=== PATIENT | female | born 1950 | race Caucasian/White ===

== ENCOUNTER → 2017-06-02 | Outpatient (CLI) | payer MEDICARE ==
--- NOTE | 2017-06-10 09:01 | MM ---
Reason for exam: screening (asymptomatic). Last mammogram was performed 4 years and 7 months ago. History: Patient is postmenopausal. Family history of breast cancer in 2 paternal aunts and breast cancer in sister at age 54. Benign right mammotome panel of the right breast, June 27, 2005. US Right Core Biopsy of the right breast, June 14, 2005. Benign stereotactic core biopsy of the left breast, May 14, 2004. Benign stereotactic core biopsy of the right breast, May 14, 2004. Core biopsy of the left breast. Core biopsy of the right breast. Took estrogen for 1 year. Physical Findings: A clinical breast exam by your physician is recommended on an annual basis and results should be correlated with mammographic findings. MG 3D Screening Mammo W/Cad Bilateral CC and MLO view(s) were taken. Prior study comparison: March 01, 2016, mammogram, performed at [place]. November 14, 2014, mammogram, performed at [place]. The breast tissue is heterogeneously dense. This may lower the sensitivity of mammography. Previous mammotome biopsy in the right and left breast. There is no discrete abnormality. No significant changes when compared with prior studies. ASSESSMENT: Benign, BI-RAD 2 RECOMMENDATION: Routine screening mammogram of both breasts in 1 year.
== END | disposition home or self-care (01) ==
LOC: RADMAMWWP 07:11
PROVIDERS: ATTEND Family Medicine
DX: Z12.31 Encounter for screening mammogram for malignant neoplasm of breast (principal)
CPT/HCPCS: 77063; G0202

== ENCOUNTER → 2017-06-03 | Outpatient (CLI) | payer MEDICARE ==
--- NOTE | 2017-06-03 17:38 | US ---
EXAMINATION TYPE: US pelvic limited DATE OF EXAM: 06/03/2017 COMPARISON: NONE CLINICAL HISTORY: N94.89 Other specified conditions assoc with genital. Fullness and palpable is note d by patient at right labia. Symptoms x 1 month. Sonographic Impression: Complex oval mass is noted at right labia and size = 2.9 x 2.5 x 1.9cm. IMPRESSION: There is a relatively solid-appearing mass in the area of concern on the right labia. Th e appearance is nonspecific. The mass is oval shaped and I would consider the possibility of a sebace ous cyst.
== END | disposition home or self-care (01) ==
LOC: RADUSWWP 16:18
PROVIDERS: ATTEND Family Medicine
DX: N94.89 Other specified conditions associated with female genital organs and menstrual cycle (principal)
CPT/HCPCS: 76857

== ENCOUNTER 2018-01-03 12:20 | Inpatient (IN) | payer MEDICARE ==
--- NOTE | 2018-01-03 14:03 | ED ---
General Adult HPI - General Chief complaint: Psychiatric Symptoms Stated complaint: Mental Health Time Seen by Provider: 01/03/18 12:42 Source: patient, family, RN notes reviewed Mode of arrival: wheelchair Limitations: no limitations - History of Present Illness Initial comments: Patient 67-year-old female who presents emergency room today with her daughter with need for psychiatric evaluation. Daughter does admit that she's been acting "strange" over this past week. Daughter states is always been some underlying delusions and exaggeration's for a long time. She states that she was lying in bed earlier today and pretending like she was nonresponsive that eventually sat up in the left side of her body. They do admit that the sole of the family physician yesterday. They were unable to obtain urinalysis at that time. Advised that they should come for possible psychiatric evaluation yesterday. States that they decided to wait to see his symptoms improved after she had a seizure in the morning yesterday. They felt that that may be related to some of her symptoms. States still having symptoms today making on statements. Patient does admit that she does feel paranoia. She states she's had this for very long time since been a little control. She does admit that she was critical to sleep. She states she has nightmares. She denies any other complaints. Daughter does admit to a family history of bipolar and schizophrenia. - Related Data Home Medications Medication Instructions Recorded Confirmed Aspirin 81 mg PO DAILY 01/03/18 01/03/18 Atorvastatin [Lipitor] 20 mg PO DAILY 01/03/18 01/03/18 Cholecalciferol (Vitamin D3) 2,000 unit PO DAILY 01/03/18 01/03/18 [Vitamin D3] Levothyroxine Sodium [Synthroid] 125 mcg PO DAILY 01/03/18 01/03/18 Losartan Potassium [Cozaar] 100 mg PO DAILY 01/03/18 01/03/18 Pantoprazole Sodium [Protonix] 40 mg PO DAILY 01/03/18 01/03/18 Sertraline [Zoloft] 100 mg PO BID 01/03/18 01/03/18 Tolterodine ER [Detrol LA] 4 mg PO DAILY 01/03/18 01/03/18 clonazePAM [KlonoPIN] 1 mg PO TID PRN 01/03/18 01/03/18 oxyCODONE-APAP 10-325MG [Percocet 1 tab PO Q4H PRN 01/03/18 01/03/18 10-325 mg] tiZANidine HCL [Zanaflex] 4 mg PO TID PRN 01/03/18 01/03/18 Allergies Allergy/AdvReac Type Severity Reaction Status Date / Time albuterol Allergy Unknown Verified 01/03/18 13:17 alcohol Allergy Unknown Verified 01/03/18 13:17 caffeine Allergy Unknown Verified 01/03/18 13:17 Childhood iodine Allergy Unknown Verified 01/03/18 13:17 lacosamide [From Vimpat] Allergy Unknown Verified 01/03/18 13:17 lamotrigine [From Lamictal] Allergy Unknown Verified 01/03/18 13:17 latex Allergy Unknown Verified 01/03/18 13:17 oxcarbazepine Allergy Unknown Verified 01/03/18 13:17 [From Trileptal] procaine [From Novocain] Allergy Unknown Verified 01/03/18 13:17 Sulfa (Sulfonamide Allergy Unknown Verified 01/03/18 13:17 Antibiotics) sumatriptan [From Imitrex] Allergy Unknown Verified 01/03/18 13:17 Review of Systems ROS Statement: Those systems with pertinent positive or pertinent negative responses have been documented in the HPI. ROS Other: All systems not noted in ROS Statement are negative. Past Medical History Past Medical History: Hyperlipidemia, Hypertension, Seizure Disorder, Sleep Apnea/CPAP/BIPAP History of Any Multi-Drug Resistant Organisms: None Reported Past Surgical History: Cholecystectomy, Hysterectomy, Tonsillectomy Additional Past Surgical History / Comment(s): biopsy bilateral breast Past Psychological History: Depression Smoking Status: Former smoker Past Alcohol Use History: None Reported Past Drug Use History: None Reported General Exam - General Exam Comments Initial Comments: General: The patient is awake and alert, in no distress, and does not appear acutely ill. Eye: Pupils are equal, round and reactive to light, extra-ocular movements are intact. No nystagmus. There is normal conjunctiva bilaterally. No signs of icterus. Ears, nose, mouth and throat: There are moist mucous membranes and no oral lesions. Neck: The neck is supple, there is no tenderness or JVD. Cardiovascular: There is a regular rate and rhythm. No murmur, rub or gallop is appreciated. Respiratory: Lungs are clear to auscultation, respirations are non-labored, breath sounds are equal. No wheezes, stridor, rales, or rhonchi. Musculoskeletal: Normal ROM, no tenderness. Strength 5/5. Sensation intact. Pulses equal bilaterally 2+. Neurological: A&O x 3. CN II-XII intact, There are no obvious motor or sensory deficits. Coordination appears grossly intact. Speech is normal. Skin: Skin is warm and dry and no rashes or lesions are noted. Psychiatric: Cooperative. Limitations: no limitations Course Vital Signs 01/03/18 12:33 Temperature 97.5 F L Pulse Rate 89 Respiratory 17 Rate Blood Pressure 133/81 O2 Sat by Pulse 97 Oximetry Medical Decision Making - Medical Decision Making Patient seen here the emergency room by [facility]. They've recommend the patient to be admitted. Patient is aware the plan. - Lab Data Result diagrams: 01/03/18 14:05 01/03/18 14:05 Lab Results 01/03/18 01/03/18 01/03/18 Range/Units 14:05 14:05 14:05 WBC 10.2 (3.8-10.6) k/uL RBC 4.81 (3.80-5.40) m/uL Hgb 14.7 (11.4-16.0) gm/dL Hct 44.4 (34.0-46.0) % MCV 92.3 (80.0-100.0) fL MCH 30.6 (25.0-35.0) pg MCHC 33.1 (31.0-37.0) g/dL RDW 14.2 (11.5-15.5) % Plt Count 221 (150-450) k/uL Neutrophils % 75 % Lymphocytes % 17 % Monocytes % 6 % Eosinophils % 0 % Basophils % 0 % Neutrophils # 7.6 (1.3-7.7) k/uL Lymphocytes # 1.7 (1.0-4.8) k/uL Monocytes # 0.6 (0-1.0) k/uL Eosinophils # 0.0 (0-0.7) k/uL Basophils # 0.0 (0-0.2) k/uL Sodium 142 (137-145) mmol/L Potassium 4.1 (3.5-5.1) mmol/L Chloride 106 (98-107) mmol/L Carbon Dioxide 21 L (22-30) mmol/L Anion Gap 15 mmol/L BUN 16 (7-17) mg/dL Creatinine 0.60 (0.52-1.04) mg/dL Est GFR (MDRD) Af Amer >60 (>60 ml/min/1.73 sqM) Est GFR (MDRD) Non-Af >60 (>60 ml/min/1.73 sqM) Glucose 100 H (74-99) mg/dL Calcium 9.8 (8.4-10.2) mg/dL Total Bilirubin 1.0 (0.2-1.3) mg/dL AST 29 (14-36) U/L ALT 31 (9-52) U/L Alkaline Phosphatase 77 (38-126) U/L Total Protein 7.2 (6.3-8.2) g/dL Albumin 4.4 (3.5-5.0) g/dL Urine Color Yellow Urine Appearance Clear (Clear) Urine pH 6.0 (5.0-8.0) Ur Specific [place] 1.017 (1.001-1.035) Urine Protein Trace H (Negative) Urine Glucose (UA) Negative (Negative) Urine Ketones 2+ H (Negative) Urine Blood Small H (Negative) Urine Nitrite Negative (Negative) Urine Bilirubin Negative (Negative) Urine Urobilinogen <2.0 (<2.0) mg/dL Ur Leukocyte Esterase Small H (Negative) Urine RBC 5 (0-5) /hpf Urine WBC 3 (0-5) /hpf Ur Squamous Epith Cells 2 (0-4) /hpf Urine Mucus Moderate H (None) /hpf Urine Opiates Screen Not Detected (NotDetected) Ur Oxycodone Screen Not Detected (NotDetected) Urine Methadone Screen Not Detected (NotDetected) Ur Propoxyphene Screen Not Detected (NotDetected) Ur Barbiturates Screen Not Detected (NotDetected) U Tricyclic Antidepress Not Detected (NotDetected) Ur Phencyclidine Scrn Not Detected (NotDetected) Ur Amphetamines Screen Not Detected (NotDetected) U Methamphetamines Scrn Not Detected (NotDetected) U Benzodiazepines Scrn Not Detected (NotDetected) Urine Cocaine Screen Not Detected (NotDetected) U Marijuana (THC) Screen Detected H (NotDetected) Disposition Clinical Impression: Paranoia, Unspecified psychosis Disposition: ADMITTED IP TO THIS [facility] Condition: Stable Time of Disposition: 19:05
[2018-01-03 14:18] LABS: Basophils % (A) 0 %; Eosinophils % (A) 0 %; HCT 44.4 % (34.0-46.0); HGB 14.7 gm/dL (11.4-16.0); Lymphocytes # (A) 1.7 k/uL (1.0-4.8); Lymphocytes % (A) 17 %; MCH 30.6 pg (25.0-35.0); MCHC 33.1 g/dL (31.0-37.0); MCV 92.3 fL (80.0-100.0); Mean Platelet Volume 6.6; Monocytes # (A) 0.6 k/uL (0-1.0); Monocytes % (A) 6 %; Neutrophils # (A) 7.6 k/uL (1.3-7.7); Neutrophils % (A) 75 %; Platelet Count 221 k/uL (150-450); RBC 4.81 m/uL (3.80-5.40); RDW 14.2 % (11.5-15.5); WBC 10.2 k/uL (3.8-10.6)
[2018-01-03 14:26] LABS: Amphetamine Screen,Urine Not Detected (NotDetected); Barbiturate Screen,Urine Not Detected (NotDetected); Benzodiazepines Screen,Urine Not Detected (NotDetected); Cocaine Screen,Urine Not Detected (NotDetected); Methadone Screen, Urine Not Detected (NotDetected); Opiate Screen,Urine Not Detected (NotDetected); Oxycodone Screen, Urine Not Detected (NotDetected); Phencyclidine Screen,Urine Not Detected (NotDetected); Tricyclic Antidepressant,Urine Not Detected (NotDetected)
[2018-01-03 14:28] LABS: Appearance,Urine Clear (Clear); Bilirubin,Urine Negative (Negative); Blood,Urine Small (Negative); Color,Urine Yellow; Glucose,Urine (UA) Negative (Negative); Ketones,Urine 2+ (Negative); Leukocyte Esterase,Urine Small (Negative); Mucus,Urine Moderate /hpf; Nitrite,Urine Negative (Negative); Protein,Urine Trace (Negative); RBC,Urine 5 /hpf (0-5); Specific Gravity,Urine 1.017 (1.001-1.035); Squamous Epithelial Cell,Urine 2 /hpf (0-4); Urn Cannabinoid Scrn Detected (NotDetected); Urobilinogen,Urine <2.0 mg/dL (<2.0); WBC,Urine 3 /hpf (0-5)
[2018-01-03 14:30] LABS: ALT 31 U/L (9-52); AST 29 U/L (14-36); Albumin 4.4 g/dL (3.5-5.0); Alkaline Phosphatase 77 U/L (38-126); Anion Gap 15 mmol/L; Blood Urea Nitrogen 16 mg/dL (7-17); Calcium 9.8 mg/dL (8.4-10.2); Carbon Dioxide 21 mmol/L (22-30); Chloride 106 mmol/L (98-107); Glucose 100 mg/dL (74-99); Potassium 4.1 mmol/L (3.5-5.1); Sodium 142 mmol/L (137-145); Total Protein 7.2 g/dL (6.3-8.2)
--- NOTE | 2018-01-03 17:19 | CT ---
EXAMINATION TYPE: CT brain wo con DATE OF EXAM: 01/03/2018 COMPARISON: 09/02/2012 HISTORY: 67-year-old female with pain, altered mental status. TECHNIQUE: Examination was done in axial plane without intravenous contrast. Coronal and sagittal r econstructions performed. CT DLP: 1059.2 mGycm Automated exposure control for dose reduction was used. FINDINGS: There is no evidence of acute intracranial hemorrhage, acute ischemic changes, mass effect, or extra -axial fluid collection. There is no effacement of cerebral sulci or basal subarachnoid cisterns. T here is no hydrocephalus. There is no midline shift. Vasquez-white matter distinction is preserved. Stable partially calcified extra-axial lesion along the left sphenoid wing measuring 1.2 cm compatibl e with a meningioma. Scattered mild mucosal thickening ethmoid air cells. Mastoid air cells are well pneumatized. Orbits a nd globes are intact. IMPRESSION: No acute intracranial abnormality seen. 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 No associated ma ss effect.
[2018-01-03] MEDS ORDERED: LORazepam 2 MG/ML INJ IV STA (18:08)
[2018-01-03] MEDS ORDERED: LORazepam 1 MG TAB PO STA (18:23)
[2018-01-03 19:13] VITALS: RESP 16; TEMP 98.1
[2018-01-03] MEDS ORDERED: MAG HYDROX/AL HYDROX/SIMETH 30 ML CUP PO PRN (19:25)
[2018-01-03] MEDS ORDERED: MAGNESIUM HYDROXIDE 2,400 MG/10 ML CUP PO PRN (19:25)
[2018-01-03] MEDS ORDERED: ACETAMINOPHEN TAB 325 MG TAB PO PRN (19:25)
[2018-01-03] MEDS ORDERED: LORazepam 0.5 MG TAB PO PRN (19:27)
[2018-01-03] MEDS ORDERED: METOPROLOL TARTRATE 25 MG TAB PO STA (21:47)
[2018-01-03 22:21] VITALS: BP 145/93; PULSE 111
[2018-01-04] MEDS ORDERED: LEVOTHYROXINE 125 MCG TAB PO SCH (06:30)
[2018-01-04] MEDS ORDERED: PANTOPRAZOLE 40 MG TABLET PO SCH (07:30)
[2018-01-04] MEDS ORDERED: LOSARTAN 50 MG TAB PO SCH (09:00)
[2018-01-04] MEDS ORDERED: ATORVASTATIN 20 MG TAB PO SCH (09:00)
[2018-01-04] MEDS ORDERED: CHOLECALCIFEROL 1,000 UNIT TAB PO SCH (09:00)
[2018-01-04] MEDS ORDERED: OXYBUTYNIN XL 5 MG TAB.ER.24 PO SCH (09:00)
[2018-01-04] MEDS ORDERED: ASPIRIN 81 MG PO SCH (09:00)
[2018-01-04] MEDS ORDERED: METOPROLOL TARTRATE 25 MG TAB PO SCH (09:00)
== END 2018-01-03 23:02 | disposition short-term general hospital (02) | DRG 897 ==
LOC: EC 12:20 → 3MHU 19:03 → 6SEL 22:06 → 3MHU 22:06 → UNDODISIN 23:02
PROVIDERS: ADMIT Psychiatry & Neurology Psychiatry; ATTEND Psychiatry & Neurology Psychiatry
DX: F19.950 Other psychoactive substance use, unspecified with psychoactive substance-induced psychotic disorder with delusions (principal); F22 Delusional disorders; E78.5 Hyperlipidemia, unspecified; G40.909 Epilepsy, unspecified, not intractable, without status epilepticus; G47.30 Sleep apnea, unspecified; I10 Essential (primary) hypertension; Z79.82 Long term (current) use of aspirin; Z79.899 Other long term (current) drug therapy; F32.9 Major depressive disorder, single episode, unspecified; Z87.891 Personal history of nicotine dependence; Z90.710 Acquired absence of both cervix and uterus; Z90.49 Acquired absence of other specified parts of digestive tract; Z81.8 Family history of other mental and behavioral disorders; Z91.041 Radiographic dye allergy status; Z91.040 Latex allergy status; Z88.2 Allergy status to sulfonamides; Z88.8 Allergy status to other drugs, medicaments and biological substances; Z91.018 Allergy to other foods
CPT/HCPCS: 36415; 70450; 80053; 80306; 81001; 82075; 85025; 93005; 99285

== ENCOUNTER 2018-01-03 13:29 | Inpatient (IN) | payer MEDICARE ==
[2018-01-04] MEDS ORDERED: LORazepam 2 MG/ML INJ IV PRN (05:56)
[2018-01-04] MEDS ORDERED: HALOPERIDOL LACTATE 5 MG/ML 1 ML VIAL IM PRN ×2 (07:13→14:21)
[2018-01-04 09:00] VITALS: BMI 37.2
[2018-01-04] MEDS ORDERED: METOPROLOL TARTRATE 25 MG TAB PO SCH (09:00)
[2018-01-04 11:30] LABS: Basophils % (A) 0 %; Eosinophils % (A) 1 %; HCT 42.7 % (34.0-46.0); HGB 14.4 gm/dL (11.4-16.0); Lymphocytes # (A) 1.7 k/uL (1.0-4.8); Lymphocytes % (A) 24 %; MCH 30.5 pg (25.0-35.0); MCHC 33.6 g/dL (31.0-37.0); MCV 90.7 fL (80.0-100.0); Mean Platelet Volume 6.8; Monocytes # (A) 0.4 k/uL (0-1.0); Monocytes % (A) 6 %; Neutrophils # (A) 4.6 k/uL (1.3-7.7); Neutrophils % (A) 66 %; Platelet Count 197 k/uL (150-450); RBC 4.71 m/uL (3.80-5.40); RDW 14.3 % (11.5-15.5)
[2018-01-04 11:39] LABS: Anion Gap 11 mmol/L; Blood Urea Nitrogen 15 mg/dL (7-17); Calcium 9.4 mg/dL (8.4-10.2); Carbon Dioxide 27 mmol/L (22-30); Chloride 107 mmol/L (98-107); Glucose 111 mg/dL (74-99); Potassium 3.6 mmol/L (3.5-5.1); Sodium 145 mmol/L (137-145)
[2018-01-04] MEDS ORDERED: clonazePAM 1 MG TAB PO PRN (12:00)
[2018-01-04] MEDS ORDERED: tiZANidine 4 MG TAB PO PRN (12:00)
[2018-01-04] MEDS ORDERED: risperiDONE ODT 1 MG TAB PO STA (14:19)
--- NOTE | 2018-01-04 14:55 | P.CN ---
Psychiatric Consult - . Consult date: 01/04/18 Consult:: 01/04/18 14:38 Identification: Patient is a 67-year-old female was brought to the emergency room yesterday by her daughter for acting strange for one week Reason for Consult: AMS History of Present Illness: Patient was brought to the emergency room by her daughter after visiting their primary care physician's office on Friday for strange behavior for one week. Patient's daughter commented that the patient has always been delusional and exaggerates. Patient is also reported to have had a seizure Friday morning. Patient was admitted to the psychiatric unit and was found to be in atrial fibrillation and transferred to a medical floor. Patient was seen in her room and no family members were present, the chart was reviewed. Patient was difficult to interview and difficult to obtain an accurate history from. Patient states she was at the doctor's office ranting and raving and tired of being improperly diagnosed. 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 She then went on to talk about the 10 questions to ask herself if you have mastocytosis. Patient then went on to discuss that everyone is talking about the outburst she had. She wanted me to tell no one that she had had the outburst. Patient states that she's always been paranoid her whole life but was unable to be specific about what she meant. Patient states that she does put her purse in the microwave in her jewelry in the oven. Patient was unable to tell me how long she has been taking Klonopin 1 mg 3 times a day or actually how she is taking it and when she stopped taking it. I one point the patient told me that she's been taking more than 3 a day at another point she told me she had been taking 1-2 a day. Patient was unable to tell me why she was on Zoloft and states that she's had depression since her mother 20 years ago she then states that she's been paranoid all her life, people of been out to get her and didn't like her because she's been rude obnoxious and loud. Patient also stated that she has impulsively spent money in the past. Patient went on to go over her medical history regarding her kidney stones and went on to discuss how she doesn't like to be cast and that that was why she became upset earlier this morning. Patient went on to also talk about having fallen on a otilia and hurt her back as well as having a head injury. Patient was unable to tell me if her seizure disorder began as a child or not at one point saying yes at another point stating that she was taking Klonopin for her seizure disorder and then later stated it was for panic attacks. Patient stated she's been paranoid all her life, she then admitted that she's had times where she's had a lot of energy and has talked a lot as well as having periods of depression where she doesn't do much of anything. She was unable to elaborate further. Past Psychiatric History: Patient reports that she has never had any inpatient psychiatric admissions in the past and it is unclear whether she has been seen by psychiatry in the past Past Medical/Surgical History: Patient has a history of a seizure disorder, back injury renal calculi, hyperlipidemia, hypertension, sleep apnea using a CPAP machine she is status post hysterectomy and cholecystectomy Family History: Unable to obtain Social History: Patient has 1 daughter and she is to her current on 2 occasions. 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 Substance Use History: Patient denies any alcohol use and states that she smoked marijuana for only the last 2 weeks and denies any other drug use Legal History: Denied Mental status: Appearance/Attitude: Patient is dressed in hospital gown lying in her hospital bed and makes intermittent eye contact and is cooperative Behavior: Patient does not display any psychomotor retardation and was easily irritated during the interview Speech/Language: Patient's speech is pressured, normal volume and rhythm and she is coherent Thought Process: Patient is tangential, preoccupied with different medical problems, no loose associations Thought Content: Patient denied auditory or visual hallucinations and states that she is paranoid when asked to clarify this she states that she won't go to bed because she is afraid someone will put a trach in her, she said that she does keep her purse and the microwave and her jewelry in the oven. She states the people of been out to get her and not like her all her life because she's been rude, obnoxious, mild. Patient went on to tell me that she is not sleeping well and feeling tired. Suicidal/Homicidal Ideation: Patient denied any current suicidal or homicidal ideation Sensorium/Cognition: Patient was alert and oriented to person, location, month and year and further cognitive testing was not performed Mood/Affect: Patient's mood labile, was tearful, at times irritable and at other times she was smiling and her affect was appropriate to her mood Isight/Judgment: Patient's insight and judgment are limited Assessment: patient was brought to the emergency room with a history of one week of acting strange, and having had a seizure on Friday in the morning as well the patient has been on Klonopin 1 mg 3 times a day and it is unclear how long ago she discontinued taking it as her UDS was not positive for benzodiazepines and was positive for marijuana.. Patient also has been on Zoloft 100 mg twice a day for an unknown period of time for depression. Patient also reports that she has panic attacks. Patient was a difficult historian. Patient reports that she is always been paranoid, her paranoia has increased recently and is unclear how well she was functioning at home for the last week. Patient has no prior history of psychiatric treatment, although she is able to endorse symptoms of paranoia, and perhaps a bipolar disorder. Patient became quite agitated earlier on the floor and was given Haldol 5 mg IM and Ativan 1 mg IM with good results patient was able to be taken out of restraints. It is difficult to say whether the patient has had a paranoid/ delusional disorder and decompensated secondary to benzodiazepine withdrawal or if the patient has an underlying bipolar disorder. Diagnosis: psychotic disorder NOS, rule out benzodiazepine-induced psychosis secondary to withdrawal, rule out bipolar disorder, manic episode with psychotic features, rule out delusional disorder Plan: I will discontinue the patient's Zoloft as she is psychotic at this time, we'll decrease her Haldol to 2 mg IM every 6 hours when necessary for agitation , we'll begin the patient on Risperdal and give 1 mg M tab now and then Risperdal M-Tab 1 mg twice a day. Patient is continued on Klonopin 1 mg 3 times a day when necessary. Will continue to follow the patient while she is on the medical floor and adjust her medications accordingly as well as assess whether the patient needs to be transferred back to the psychiatric unit once she is medically stable.
[2018-01-04] MEDS: METOPROLOL TARTRATE 25 MG TAB PO SCH ×2 (16:18→20:37)
[2018-01-04] MEDS: RIVAROXABAN 10 MG TAB PO SCH (16:21)
--- NOTE | 2018-01-04 16:21 | P.HPIM ---
History of Present Illness H&P Date: 01/04/18 Chief Complaint: Acute psychosis Patient is a 67-year-old female with a known history of Hyperlipidemia, Hypertension, Osteoarthritis (OA), Pneumonia, Seizure Disorder, Sleep Apnea/CPAP /BIPAP initially presents to ER with her daughter for psychiatric evaluation. Patient has been acting strange over the past 1 week. Patient was having delusions and hallucinations. Patient does have a long-standing history of psychiatric illness. Patient was having a rheumatoid symptoms and night sweats. Patient was initially admitted to psychiatric unit for evaluation. Patient was found to have atrial fibrillation with rapid ventricular rate up to 110 while in the psychiatric unit. Patient was transferred to inpatient telemetry unit. Patient was combative and hallucinating and had to restrain this morning. She was given a dose of Haldol 5 mg IM. Currently patient did improve clinically and restraints have it removed. Cardiology has been consulted for new onset atrial fibrillation. Currently patient denied any complaints of chest pain or shortness of breath. No nausea vomiting or abdominal pain. Otherwise patient is a poor historian and complete review of systems could not be obtained from the patient Past Medical History Past Medical History: Hyperlipidemia, Hypertension, Osteoarthritis (OA), Pneumonia, Seizure Disorder, Sleep Apnea/CPAP/BIPAP History of Any Multi-Drug Resistant Organisms: None Reported Past Surgical History: Cholecystectomy, Hysterectomy, Tonsillectomy Additional Past Surgical History / Comment(s): biopsy bilateral breast, lipoma removed from shoulder. Past Psychological History: Depression Additional Psychological History / Comment(s): Paranoia Smoking Status: Former smoker Past Alcohol Use History: None Reported Past Drug Use History: None Reported - Past Family History Father Family Medical History: Unable to Obtain Mother Family Medical History: Unable to Obtain Medications and Allergies Home Medications Medication Instructions Recorded Confirmed Type Aspirin 81 mg PO DAILY 01/03/18 01/04/18 History Atorvastatin [Lipitor] 20 mg PO DAILY 01/03/18 01/04/18 History Cholecalciferol (Vitamin D3) 2,000 unit PO DAILY 01/03/18 01/04/18 History [Vitamin D3] Levothyroxine Sodium [Synthroid] 125 mcg PO DAILY 01/03/18 01/04/18 History Losartan Potassium [Cozaar] 100 mg PO DAILY 01/03/18 01/04/18 History Pantoprazole Sodium [Protonix] 40 mg PO DAILY 01/03/18 01/04/18 History Sertraline [Zoloft] 100 mg PO BID 01/03/18 01/04/18 History Tolterodine ER [Detrol LA] 4 mg PO DAILY 01/03/18 01/04/18 History clonazePAM [KlonoPIN] 1 mg PO TID PRN 01/03/18 01/04/18 History oxyCODONE-APAP 10-325MG [Percocet 1 tab PO Q4H PRN 01/03/18 01/04/18 History 10-325 mg] tiZANidine HCL [Zanaflex] 4 mg PO TID PRN 01/03/18 01/04/18 History Allergies Allergy/AdvReac Type Severity Reaction Status Date / Time albuterol Allergy Unknown Verified 01/04/18 07:44 alcohol Allergy Unknown Verified 01/04/18 07:44 caffeine Allergy Unknown Verified 01/04/18 07:44 Childhood iodine Allergy Unknown Verified 01/04/18 07:44 lacosamide [From Vimpat] Allergy Unknown Verified 01/04/18 07:44 lamotrigine [From Lamictal] Allergy Unknown Verified 01/04/18 07:44 latex Allergy Unknown Verified 01/04/18 07:44 oxcarbazepine Allergy Unknown Verified 01/04/18 07:44 [From Trileptal] procaine [From Novocain] Allergy Unknown Verified 01/04/18 07:44 Sulfa (Sulfonamide Allergy Unknown Verified 01/04/18 07:44 Antibiotics) sumatriptan [From Imitrex] Allergy Unknown Verified 01/04/18 07:44 Physical Exam Vitals: Vital Signs Temp Pulse Resp BP Pulse Ox 01/04/18 11:29 78 01/04/18 11:28 97.1 F L 78 16 137/64 97 01/04/18 08:00 97.1 F L 53 L 14 159/77 93 L 01/04/18 04:00 94 18 01/04/18 03:58 97.1 F L 94 18 132/79 94 L 01/04/18 00:41 104 H 18 01/04/18 00:00 98.5 F 104 H 18 150/90 95 Intake and Output 01/03/18 01/04/18 01/04/18 22:59 06:59 14:59 Intake Total 150 Balance 150 Intake: Oral 150 Other: Voiding Method Toilet # Voids 3 Weight 111 kg PHYSICAL EXAMINATION: Patient is lying in the bed comfortably, no acute distress, awake alert and oriented.. HEENT: Normocephalic. Neck is supple. Pupils reactive. Nostrils clear. Oral cavity is moist. Ears reveal no drainage. Neck reveals no JVD, carotid bruits, or thyromegaly. CHEST EXAMINATION: Trachea is central. Symmetrical expansion. Lung valiente clear to auscultation and percussion. CARDIAC: Normal S1, S2 with no gallops. No murmurs ABDOMEN: Soft. Bowel sounds normal. No organomegaly. No abdominal bruits. Extremities: reveal no edema. No clubbing or cyanosis Neurologically awake, alert, oriented x3 with well-coordinated movements. No focal deficits noted Skin: No rash or skin lesions. Psychiatric: Patient does have acute psychosis and paranoid Musculoskeletal: No joint swelling or deformity. Normal range of motion. Results CBC & Chem 7: 01/04/18 11:16 01/04/18 11:16 Labs: Abnormal Lab Results - Last 24 Hours (Table) 01/04/18 Range/Units 11:16 Glucose 111 H (74-99) mg/dL Thrombosis Risk Factor Assmnt - Choose All That Apply Any of the Below Risk Factors Present?: No Each Risk Factor Represents 2 Points: Age 61-74 years Each Risk Factor Represents 3 Points: History of DVT/PE Thrombosis Risk Factor Assessment Total Risk Factor Score: 5 Thrombosis Risk Factor Assessment Level: High Risk Assessment and Plan Assessment: Acute psychosis with paranoid symptoms New onset atrial fibrillation. Rate controlled Hypertension Hyperlipidemia Osteoarthritis History of seizure disorder Obstructive sleep apnea on CPAP morbid obesity with BMI 37.2 Plan: Patient will be continued on telemetry monitoring. Serial EKG. Will check troponin level. Continue with aspirin. Cardiology was consulted for further evaluation of atrial fibrillation. Psychiatric has seen the patient. Zoloft has been discontinued and patient was started on Haldol and Klonopin. Continue with current management and further recommendations based on the clinical course. Time with Patient: Greater than 30
[2018-01-04] MEDS: risperiDONE ODT 1 MG TAB PO SCH (20:38)
[2018-01-04] MEDS ORDERED: SERTRALINE 100 MG TAB PO SCH (21:00)
[2018-01-04 21:37] VITALS: RESP 18
--- NOTE | 2018-01-04 23:31 | CONS ---
CONSULTATION This is a 67-year-old lady who has been transferred from the mental health unit because of anxiety and was found to have a rapid heart rate in atrial fibrillation, but she has since then converted to sinus rhythm. She is resting comfortably without symptoms. This lady was brought to the emergency room by her daughter after visiting the primary care physician for strange behavior and the daughter commented that patient has been delusional. There was a question of seizures. However, after she has been hospitalized while on the telemetry unit apparently, she developed some anxiety and went on to have a rapid heart rate and was found to be in atrial fibrillation and transferred here. She has converted to sinus rhythm. She is resting comfortably without symptoms. However, her EKG after conversion revealed some precordial nonspecific T-wave changes without angina. PAST MEDICAL HISTORY: 1. Hypertension. 2. Hyperlipidemia. 3. Anxiety disorder. 4. History of obstructive sleep apnea syndrome. 5. She is status post cholecystectomy, hysterectomy, and tonsillectomy. 6. Also has underlying depression and paranoia and has been in the mental health unit. MEDICATIONS: At home include: Aspirin 81 mg daily, Lipitor 20 mg daily, Synthroid 125 mcg daily, Cozaar, Protonix, she also takes Zoloft. ALLERGIES: SHE IS ALLERGIC TO NUMBER MEDICATION INCLUDING ALLERGIES, SULFA, IMITREX, LAMICTAL AND ALBUTEROL. EXAMINATION: Blood pressure is 137/70, pulse rate 78, regular sinus. HEENT unremarkable. Fundus was not examined by me. NECK: Supple. No JVD. I do not hear a carotid bruit. There is no thyromegaly. Heart exam reveals S1, S2 heard normally. Heart sounds are distantly. No significant murmurs lungs are clear. ABDOMEN: Soft, nontender. Lower extremities reveal diminished pulses. Central nervous system is normal. EKG revealed a sinus mechanism with a precordial T-wave inversion. IMPRESSION: 1. Paroxysmal atrial fibrillation, now back in sinus rhythm. 2. Hypertension. 3. History of anxiety disorder and paranoia. 4. History of obstructive sleep apnea syndrome. RECOMMENDATION: I am recommending that we check a TSH level, perform echo and Lexiscan stress test in the morning. Start her on Xarelto 20 mg daily, Lopressor will be 25 mg t.i.d. I discussed my thoughts in detail with the patient. Thank you very much for the consult. MMODL / IJN: [id number] /
[2018-01-05] MEDS ORDERED: REGADENOSON 0.4 MG/5 ML SYRINGE IV ONE (06:00)
[2018-01-05] MEDS ORDERED: AMINOPHYLLINE 500 MG/20 ML VIAL IV PRN (06:00)
[2018-01-05] MEDS ORDERED: LEVOTHYROXINE 125 MCG TAB PO SCH (06:30)
[2018-01-05 06:49] LABS: Glucose,Whole Blood 106 mg/dL (75-99)
[2018-01-05] MEDS ORDERED: PANTOPRAZOLE 40 MG TABLET PO SCH (07:30)
[2018-01-05] MEDS ORDERED: ASPIRIN 81 MG PO SCH (09:00)
[2018-01-05] MEDS ORDERED: ATORVASTATIN 20 MG TAB PO SCH (09:00)
[2018-01-05] MEDS ORDERED: CHOLECALCIFEROL 1,000 UNIT TAB PO SCH (09:00)
[2018-01-05] MEDS ORDERED: TOLTERODINE 4 MG PO SCH (09:00)
[2018-01-05] MEDS ORDERED: LOSARTAN 50 MG TAB PO SCH (09:00)
--- NOTE | 2018-01-05 10:30 | NM ---
EXAMINATION TYPE: NM stress lexiscan cardiolite DATE OF EXAM: 01/05/2018 COMPARISON: NONE HISTORY: 67-year-old female EKG changes, pain TECHNIQUE: After the intravenous administration of 10.3 mCi Tc 99m Sestamibi - Cardiolite resting SP ECT images acquired 40 minutes post injection. The patient received 0.4mg Lexiscan, 27 mCi Tc 99m Sestamibi - Stress images obtained 30 minutes post injection FINDINGS: Review of stress and rest SPECT images demonstrates no distinct perfusion abnormality. Gated analysi s shows normal wall motion with an estimated left ventricular ejection fraction of 64 %. TID calcula rick at 0.87, within normal limits. IMPRESSION: No scintigraphic evidence for reversible ischemia.
--- NOTE | 2018-01-05 10:40 | ECHOF ---
Referral Reason:EKG changes MEASUREMENTS -------- HEIGHT: 172.7 cm WEIGHT: 110.7 kg BP: 135/70 RVIDd: 3.3 cm (< 3.3) IVSd: 1.1 cm (0.6 - 1.1) LVIDd: 5.7 cm (3.9 - 5.3) LVPWd: 1.1 cm (0.6 - 1.1) IVSs: 2.0 cm LVIDs: 3.5 cm LVPWs: 1.8 cm LA Diam: 4.0 cm (2.7 - 3.8) LAESV Index (A-L): 31.51 ml/m Ao Diam: 3.4 cm (2.0 - 3.7) AV Cusp: 2.1 cm (1.5 - 2.6) MV EXCURSION: 11.800 mm (> 18.000) MV EF SLOPE: 59 mm/s (70 - 150) EPSS: 0.4 cm MV E Ketan: 0.76 m/s MV DecT: 226 ms MV A Ketan: 0.85 m/s MV E/A Ratio: 0.89 FINDINGS -------- Sinus rhythm. This was a technically adequate study. The left ventricle is mildly dilated. There is borderline concentric left ventricular hypertrophy. Overall left ventricular systolic function is normal with, an EF between 55 - 60 %. The right ventricle is mildly enlarged. LA is midly dilated 29-33ml/m2. The right atrium is normal in size. There is mild aortic valve sclerosis. There is trace mitral regurgitation. The tricuspid valve appears structurally normal. The pulmonic valve was not well visualized. The aortic root size is normal. Normal inferior vena cava with normal inspiratory collapse consistent with estimated right atrial pre ssure of 5 mmHg. There is no pericardial effusion. CONCLUSIONS -------- 1. Sinus rhythm. 2. This was a technically adequate study. 3. The left ventricle is mildly dilated. 4. There is borderline concentric left ventricular hypertrophy. 5. Overall left ventricular systolic function is normal with, an EF between 55 - 60 %. 6. The right ventricle is mildly enlarged. 7. LA is midly dilated 29-33ml/m2. 8. The right atrium is normal in size. 9. There is mild aortic valve sclerosis. 10. There is trace mitral regurgitation. 11. The tricuspid valve appears structurally normal. 12. The pulmonic valve was not well visualized. 13. The aortic root size is normal. 14. Normal inferior vena cava with normal inspiratory collapse consistent with estimated right atrial pressure of 5 mmHg. 15. There is no pericardial effusion. COMMERCIAL ADMINISTRATOR: Judy Palma RDCS
[2018-01-05 11:21] VITALS: TEMP 97.5
[2018-01-05] MEDS: METOPROLOL TARTRATE 25 MG TAB PO SCH ×2 (12:33→17:15)
[2018-01-05] MEDS: risperiDONE ODT 1 MG TAB PO SCH ×2 (12:34→17:15)
--- NOTE | 2018-01-05 13:14 | EST ---
EXERCISE STRESS AGE: 67 SEX: F HT: 5'8" WT: 242 PROTOCOL: Lexiscan Cardiolite Stress Test HEART RATE REST: 72 BLOOD PRESSURE REST: 111/87 MAXIMUM HEART RATE ACHIEVED: 86 MAXIMUM BLOOD PRESSURE: 108/67 85% MPHR: 131 100% MPHR: 154 INDICATIONS: Shortness of breath Lexiscan Cardiolite study was performed. Peak heart rate of 86, was achieved. Maximum blood pressure 108/67 mmHg was noted. Resting EKG shows normal sinus rhythm with normal OK interval and QRS duration and normal ST-T waves. No ST-segment depression suggestive of ischemia was noted. The results of the nuclear study will follow. MMAVANIL / IJN: [id number] /
--- NOTE | 2018-01-05 15:33 | P.PN ---
Progress Note - Text Progress Note Date: 01/05/18 Interval History: Patient is a 67-year-old female who is being seen in follow- up to a consultation, patient reports that she is doing much better today and was able to give some more information regarding what had been occurring. Patient states that she would take Klonopin some days nothing some days up to 6 and she has been doing this for a number of years that she has been on Klonopin since 2005. Patient states that she would take these for episodes of feeling sweaty and anger anxious. She reports that in [place] when she was living there she had seizures on several occasions and was in the hospital on 3-4 occasions when she had stopped taking her Klonopin. She states that while she was in [place] they were attending a confucianism that did pray over her and tell her to stop the Klonopin. Patient reports that she has been paranoid in the past and does admit to putting her purse and valuables either in the oven or in the microwave. She states that she was afraid to fall asleep but does not have these thoughts now. Patient does not endorse any symptoms of manic behavior in the past but doesn't endorse symptoms of depression in the past and "paranoid" episodes of which she cannot be very clear about. Patient states that she sleeps during the day and stays up most nights playing video games or watching television. Patient reports that she is no longer feeling as confused as she was when she came into the emergency room. Mental Status: Appearance/Attitude: Patient was dressed in street clothes, was sitting at the edge of her bed made good eye contact and was cooperative. Behavior: Patient did not display any psychomotor agitation or retardation. Speech/Language: Patient's speech was spontaneous, of normal volume and rhythm and remained at times slightly pressured Thought Process: Patient was goal-directed, she was a better historian today but is still not able to give a clear history about her prior symptoms or what was occurring in the week prior to her admission. Thought Content: Patient denied auditory or visual hallucinations and still slightly suspicious but does not verbalize any paranoid delusions. Patient states that she is no longer feeling that if she falls asleep she will be trached, denies that she feels people are out to hurt her and states that she felt when she was placed in restraints that she was being videotaped. Suicidal/Homicidal Ideation: Patient denies any current suicidal or homicidal ideation Sensorium/Cognition: Patient is alert and oriented to person, place, and time and her recent and remote memory is grossly intact Mood/Affect: Patient's mood is slightly anxious and her affect is appropriate Insight/Judgment: Patient's insight and judgment are limited. Assessment: Patient is much more organized in [place] each and thoughts today, states that she feels she is thinking clearer states that she no longer feels that if she falls asleep she will be trached, but was questioning whether she had been videotaped the other day in the hospital. Patient states that she's had paranoid episodes in the past but is unable to clearly define or describe what those were. Patient states that she was using Klonopin by taking none some days 6 other days taking 3 at bedtime and has been doing this on and off for a number of years. Patient states that she has been on Klonopin since 2005 and she reported that she had several episodes of seizures in [place] in the past. Patient was also on Zoloft 200 mg since 1998 for depression and episodes where she feels "sweaty" and states that this is not been beneficial either. Plan: Patient was agreeable to transfer back to the psychiatric unit and signing in on a voluntary basis, I discussed with her continuing the Risperdal 1 mg twice a day for now. Patient has not taken any Klonopin while she has been in the hospital and was not taking it for several days prior to her admission so will not continue this medication. Patient felt the Zoloft was not beneficial and so will not restart that either. Patient will be evaluated for appropriate medications on the psychiatric unit and I discussed this with the patient and she was agreeable to this plan.
--- NOTE | 2018-01-05 15:57 | P.DS ---
Providers Date of admission: 01/03/18 23:03 Attending physician: Andrea Willoughby Consults: 01/04/18 05:58 Consult Physician Routine Consulting Provider: Daryn Shin Consult Reason/Comments: NOS A-Fib RVR Do you want consulting provider notified?: Yes, Notify in am 01/04/18 06:10 Consult Physician Routine Consulting Provider: Nallely Terry Consult Reason/Comments: AMS Do you want consulting provider notified?: Yes, Notify in am Primary care physician: Stated None Hospital Course: Hyperlipidemia, Hypertension, Osteoarthritis (OA), Pneumonia, Seizure Disorder, Sleep Apnea/CPAP/BIPAP initially presents to ER with her daughter for psychiatric evaluation. Patient has been acting strange over the past 1 week. Patient was having delusions and hallucinations. Patient does have a long- standing history of psychiatric illness. Patient was having a rheumatoid symptoms and night sweats. Patient was initially admitted to psychiatric unit for evaluation. Patient was found to have atrial fibrillation with rapid ventricular rate up to 110 while in the psychiatric unit. Patient was transferred to inpatient telemetry unit. Patient was combative and hallucinating and had to restrain this morning. She was given a dose of Haldol 5 mg IM. Currently patient did improve clinically and restraints have it removed. Cardiology has been consulted for new onset atrial fibrillation. Currently patient denied any complaints of chest pain or shortness of breath. No nausea vomiting or abdominal pain. 01/05/2018 Patient heart rate is well controlled patient was started on Lopressor and anticoagulation patient medically is doing well and patient will be discharged back to psychiatric floor PHYSICAL EXAMINATION: Patient is lying in the bed comfortably, no acute distress, awake alert and oriented.. HEENT: Normocephalic. Neck is supple. Pupils reactive. Nostrils clear. Oral cavity is moist. Ears reveal no drainage. Neck reveals no JVD, carotid bruits, or thyromegaly. CHEST EXAMINATION: Trachea is central. Symmetrical expansion. Lung valiente clear to auscultation and percussion. CARDIAC: Normal S1, S2 with no gallops. No murmurs ABDOMEN: Soft. Bowel sounds normal. No organomegaly. No abdominal bruits. Extremities: reveal no edema. No clubbing or cyanosis Neurologically awake, alert, oriented x3 with well-coordinated movements. No focal deficits noted Skin: No rash or skin lesions. Psychiatric: Patient does have acute psychosis and paranoid Musculoskeletal: No joint swelling or deformity. Normal range of motion. Assessment and Plan Assessment: New onset atrial fibrillation. Rate controlled Acute psychosis with paranoid symptoms Hypertension Hyperlipidemia Osteoarthritis History of seizure disorder Obstructive sleep apnea on CPAP morbid obesity with BMI 37.2 Plan - Discharge Summary Discharge Rx Participant: No New Discharge Prescriptions: New Metoprolol Tartrate [Lopressor] 25 mg PO TID #90 tab Rivaroxaban [Xarelto] 20 mg PO W/SUPPER #30 tab Butalb/APAP/Caff 50-325-40Mg [Fioricet 50-325-40] 1 tab PO Q4H PRN #30 tablet PRN Reason: Headache Continue tiZANidine HCL [Zanaflex] 4 mg PO TID PRN PRN Reason: Pain Tolterodine ER [Detrol LA] 4 mg PO DAILY Sertraline [Zoloft] 100 mg PO BID Levothyroxine Sodium [Synthroid] 125 mcg PO DAILY oxyCODONE-APAP 10-325MG [Percocet 10-325 mg] 1 tab PO Q4H PRN PRN Reason: Pain clonazePAM [KlonoPIN] 1 mg PO TID PRN PRN Reason: Anxiety Pantoprazole Sodium [Protonix] 40 mg PO DAILY Losartan Potassium [Cozaar] 100 mg PO DAILY Cholecalciferol (Vitamin D3) [Vitamin D3] 2,000 unit PO DAILY Atorvastatin [Lipitor] 20 mg PO DAILY Discontinued Aspirin 81 mg PO DAILY Discharge Medication List Atorvastatin [Lipitor] 20 mg PO DAILY 01/03/18 [History] Cholecalciferol (Vitamin D3) [Vitamin D3] 2,000 unit PO DAILY 01/03/18 [History] Levothyroxine Sodium [Synthroid] 125 mcg PO DAILY 01/03/18 [History] Losartan Potassium [Cozaar] 100 mg PO DAILY 01/03/18 [History] Pantoprazole Sodium [Protonix] 40 mg PO DAILY 01/03/18 [History] Sertraline [Zoloft] 100 mg PO BID 01/03/18 [History] Tolterodine ER [Detrol LA] 4 mg PO DAILY 01/03/18 [History] clonazePAM [KlonoPIN] 1 mg PO TID PRN 01/03/18 [History] oxyCODONE-APAP 10-325MG [Percocet 10-325 mg] 1 tab PO Q4H PRN 01/03/18 [History] tiZANidine HCL [Zanaflex] 4 mg PO TID PRN 01/03/18 [History] Butalb/APAP/Caff 50-325-40Mg [Fioricet 50-325-40] 1 tab PO Q4H PRN #30 tablet [Rx] Metoprolol Tartrate [Lopressor] 25 mg PO TID #90 tab 01/05/18 [Rx] Rivaroxaban [Xarelto] 20 mg PO W/SUPPER #30 tab 01/05/18 [Rx] Follow up Appointment(s)/Referral(s): Kahlil Sauer MD [STAFF PHYSICIAN] - 1 Week Alonzo Anderson DO [STAFF PHYSICIAN] - 3 Days Discharge Disposition: TRANSFER TO PSYCH HOSP/UNIT
[2018-01-05] MEDS: RIVAROXABAN 10 MG TAB PO SCH (17:15)
[2018-01-05 17:24] VITALS: BP 119/57; PULSE 78
== END 2018-01-05 18:18 | DRG 309 ==
LOC: UNDOADMIN 23:03 → 6SEL 23:03 → EEVIPCON 23:03
PROVIDERS: ADMIT Internal Medicine; ATTEND Internal Medicine
DX: I48.0 Paroxysmal atrial fibrillation (principal); F23 Brief psychotic disorder; E66.01 Morbid (severe) obesity due to excess calories; F32.9 Major depressive disorder, single episode, unspecified; F41.9 Anxiety disorder, unspecified; E78.5 Hyperlipidemia, unspecified; G40.909 Epilepsy, unspecified, not intractable, without status epilepticus; I10 Essential (primary) hypertension; G47.33 Obstructive sleep apnea (adult) (pediatric); M19.91 Primary osteoarthritis, unspecified site; Z68.36 Body mass index [BMI] 36.0-36.9, adult; Z87.891 Personal history of nicotine dependence; Z79.82 Long term (current) use of aspirin; Z79.899 Other long term (current) drug therapy; Z87.01 Personal history of pneumonia (recurrent); Z90.49 Acquired absence of other specified parts of digestive tract; Z90.710 Acquired absence of both cervix and uterus; Z87.442 Personal history of urinary calculi; Z88.5 Allergy status to narcotic agent; Z88.2 Allergy status to sulfonamides; Z88.8 Allergy status to other drugs, medicaments and biological substances; Z91.040 Latex allergy status
CPT/HCPCS: 78452; 80048; 84443; 84484; 85025; 93017; 93306

== ENCOUNTER 2018-01-05 16:31 | Inpatient (IN) | payer MEDICARE ==
[2018-01-05] MEDS ORDERED: MAG HYDROX/AL HYDROX/SIMETH 30 ML CUP PO PRN (16:35)
[2018-01-05] MEDS ORDERED: LORazepam 1 MG TAB PO PRN ×2 (16:35→16:44)
[2018-01-05] MEDS ORDERED: ZIPRASIDONE 20 MG VIAL IM PRN (16:35)
[2018-01-05] MEDS ORDERED: ACETAMINOPHEN TAB 325 MG TAB PO PRN (16:35)
[2018-01-05] MEDS ORDERED: MAGNESIUM HYDROXIDE 2,400 MG/10 ML CUP PO PRN (16:35)
[2018-01-05] MEDS ORDERED: tiZANidine 4 MG TAB PO PRN (16:37)
[2018-01-05] MEDS ORDERED: BUTALB/APAP/CAFF 50-325-40MG TAB PO PRN (16:37)
[2018-01-05] MEDS: RIVAROXABAN 10 MG TAB PO SCH (18:29)
[2018-01-05] MEDS: risperiDONE ODT 1 MG TAB PO SCH (20:49)
[2018-01-05] MEDS: METOPROLOL TARTRATE 25 MG TAB PO SCH (20:49)
[2018-01-06] MEDS: LEVOTHYROXINE 125 MCG TAB PO SCH (06:25)
[2018-01-06] MEDS: LOSARTAN 50 MG TAB PO SCH (08:49)
[2018-01-06] MEDS: METOPROLOL TARTRATE 25 MG TAB PO SCH ×3 (08:49→21:25)
[2018-01-06] MEDS: PANTOPRAZOLE 40 MG TABLET PO SCH (08:49)
[2018-01-06] MEDS: ATORVASTATIN 20 MG TAB PO SCH (08:49)
[2018-01-06] MEDS: risperiDONE ODT 1 MG TAB PO SCH (08:49)
[2018-01-06] MEDS: OXYBUTYNIN XL 5 MG TAB.ER.24 PO SCH (08:49)
[2018-01-06 09:35] LABS: Basophils % (A) 1 %; Eosinophils # (A) 0.1 k/uL (0-0.7); Eosinophils % (A) 1 %; HCT 40.5 % (34.0-46.0); HGB 13.9 gm/dL (11.4-16.0); Lymphocytes # (A) 1.2 k/uL (1.0-4.8); Lymphocytes % (A) 21 %; MCHC 34.4 g/dL (31.0-37.0); MCV 89.9 fL (80.0-100.0); Mean Platelet Volume 7.1; Monocytes # (A) 0.4 k/uL (0-1.0); Monocytes % (A) 7 %; Neutrophils % (A) 68 %; Platelet Count 188 k/uL (150-450); RDW 14.6 % (11.5-15.5); WBC 5.8 k/uL (3.8-10.6)
[2018-01-06 09:46] LABS: ALT 27 U/L (9-52); AST 24 U/L (14-36); Albumin 4.1 g/dL (3.5-5.0); Alkaline Phosphatase 78 U/L (38-126); Anion Gap 12 mmol/L; Blood Urea Nitrogen 14 mg/dL (7-17); Calcium 9.6 mg/dL (8.4-10.2); Carbon Dioxide 27 mmol/L (22-30); Chloride 105 mmol/L (98-107); Cholesterol 167 mg/dL (<200); Glucose 155 mg/dL (74-99); HDL Cholesterol 48 mg/dL (40-60); LDL Cholesterol,Calculated 93 mg/dL (0-99); Sodium 144 mmol/L (137-145); Total Bilirubin 0.9 mg/dL (0.2-1.3); Total Protein 6.8 g/dL (6.3-8.2); Triglycerides 132 mg/dL (<150)
[2018-01-06] MEDS: CHOLECALCIFEROL 1,000 UNIT TAB PO SCH (12:29)
--- NOTE | 2018-01-06 12:54 | HP ---
HISTORY AND PHYSICAL DATE OF SERVICE/DICTATION: 01/06/2018 IDENTIFYING DATA: This patient is a 67-year-old female who was admitted to the mental health unit from the medical floor. She had presented originally to the mental health unit with agitation and symptoms of psychosis. HISTORY OF PRESENT ILLNESS: The patient was transferred back to our unit from the medical floor after being medically cleared. She was originally brought to the emergency room by her daughter after visiting the primary care physician's office last Friday. There was some note that she had strange behavior for 1 week. There was mention that the patient had delusional thoughts. There was reports that the patient had a seizure on Friday morning. On the psychiatric unit, she was found to have atrial fibrillation and was transferred to the medical unit. The patient admits today that she had been smoking marijuana for the last 2 weeks prior to this admission and she may have been overusing her Klonopin as well. It seems that she ran out of that medication. Today she reports that her mood is good. She states that she no longer has any hallucinations. She does not feel paranoid. She does chronically struggle with depression and anxiety, however. She is reporting no suicidal or homicidal ideation. She states that the Risperdal that she is currently on is making her feel "loopy". We discussed that was put into place because of her psychosis and agitated behavior. PAST PSYCHIATRIC HISTORY: The patient has no other history of inpatient psychiatric admissions. No history of suicide attempts. She has been on Zoloft 100 mg twice daily for the last 12 years or more. It initially was a helpful medication, but over the last year or so the medication has not been as beneficial. She states that she has been gradually increasing her Klonopin dosage at the recommendation of her primary care physician. She has not tried any other psychotropics in the past. PAST MEDICAL HISTORY: Recent atrial fibrillation. She has a history of a seizure disorder, back injury, renal calculi, hyperlipidemia, hypertension, sleep apnea, using CPAP machine. ALLERGIES: SULFA, PROCAINE, ALBUTEROL, IODINE, VIMPAT, LAMICTAL, TRILEPTAL, Imitrex. FAMILY PSYCHIATRIC HISTORY: Unknown. FAMILY CHEMICAL DEPENDENCY HISTORY: Unknown. SOCIAL HISTORY: The patient is for the second time. She resides with her . She has 1 daughter and 2 sons. She is originally from the [place]. She has a high school education with some college credits. She has no history of service. 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 No legal history. No abuse history. CHEMICAL DEPENDENCY HISTORY: The patient reports no use of alcohol. She states that she has been using marijuana for the last 2 weeks as she found it in the home. She has never been placed in residential treatment for chemical dependency reasons. MENTAL STATUS EXAM: The patient is an overweight female appearing her stated age. She is dressed in her own clothing. She is mildly disheveled. Eye contact is appropriate. She is pleasant, cooperative. She has several bruises on her upper extremities that are healing. She reports that her mood is "very good today". Affect is mildly constricted. She is reporting no suicidal or homicidal ideation, intent, or plan. She is endorsing no auditory or visual hallucinations or any specific delusions. She demonstrates no tangential thinking, loose associations or flight of ideas. She demonstrates no abnormal involuntary movements. She demonstrates no verbal or physical aggressiveness. She is oriented to person, place, and date. Insight and judgment improving. She is able to spell world backwards. Strengths: Housing, support from spouse, willingness to receive voluntary treatment. Weaknesses: Recent use of marijuana, suspected overuse of Klonopin, ongoing mood and anxiety symptoms. Intellect: Average. IMPRESSIONS: 1. Psychosis, unspecified. Rule out psychosis secondary to benzodiazepine induced withdrawal versus psychosis due to cannabis use. History of major depressive episodes, anxiety unspecified. 2. Several medical comorbidities including seizure disorder, back injury, renal calculi, hyperlipidemia, hypertension, atrial fibrillation, obstructive sleep apnea. PLAN: The patient has been admitted to the mental health unit. She is here voluntarily. We reviewed her presenting symptoms and medication options. Today we will just reduce the Risperdal as it seems it is no longer needed. It will be reduced to 0.5 mg at bedtime, and our plan is to taper her off of that medication. We will likely pick another antidepressant to help control her mood symptoms as well as anxiety. At length, we discussed the importance of us trying to minimize use of benzodiazepines. She was provided education on use of benzodiazepines. She has been seen by Social Work for a psychosocial assessment. She will be seen by Internal Medicine for routine history and physical exam. We will monitor her for safety and encourage her participation in the milieu. MMODL / IJN: [id number] /
[2018-01-06] MEDS: RIVAROXABAN 10 MG TAB PO SCH (16:40)
--- NOTE | 2018-01-06 17:36 | P.CONS ---
History of Present Illness - Reason for Consult Atrial fibrillation - History of Present Illness Patient was transferred back to [facility] for after she was treated for atrial fibrillation patient is presently rate controlled patient denied any symptoms at this point of time patient is feeling much better but wanted to go home but after tomorrow to celebrate her per day. Patient denied any fever, chills, nausea, vomiting, dysuria. Review of Systems REVIEW OF SYSTEMS: CONSTITUTIONAL: No fever, no malaise, no fatigue. HEENT: No recent visual problems or hearing problems. Denied any sore throat. CARDIOVASCULAR: No chest pain, orthopnea, PND, no palpitations, no syncope. PULMONARY: No shortness of breath, no cough, no hemoptysis. GASTROINTESTINAL: No diarrhea, no nausea, no vomiting, no abdominal pain. Normoactive bowel sounds. NEUROLOGICAL: No headaches, no weakness, no numbness. HEMATOLOGICAL: Denies any bleeding or petechiae. GENITOURINARY: Denies any burning micturition, frequency, or urgency. MUSCULOSKELETAL/RHEUMATOLOGICAL: Denies any joint pain, swelling, or any muscle pain. ENDOCRINE: Denies any polyuria or polydipsia. The rest of the 14-point review of systems is negative. Past Medical History Past Medical History: Atrial Fibrillation, Fibromyalgia, Hyperlipidemia, Hypertension, Osteoarthritis (OA), Pneumonia, Seizure Disorder, Sleep Apnea/CPAP /BIPAP, Syncope, Thyroid Disorder History of Any Multi-Drug Resistant Organisms: None Reported Past Surgical History: Cholecystectomy, Hysterectomy, Tonsillectomy Additional Past Surgical History / Comment(s): biopsy bilateral breast, lipoma removed from shoulder. Past Anesthesia/Blood Transfusion Reactions: Postoperative Nausea & Vomiting ( PONV) Past Psychological History: Depression Additional Psychological History / Comment(s): Paranoia Smoking Status: Former smoker Past Alcohol Use History: Rare Past Drug Use History: Marijuana - Past Family History Father Family Medical History: Myocardial Infarction (NM) Additional Family Medical History / Comment(s): Patient's father at the age of a 54 years old of a myocardial infarction. Mother Family Medical History: AFIB, Chest Pain / Angina Medications and Allergies Home Medications Medication Instructions Recorded Confirmed Type Atorvastatin [Lipitor] 20 mg PO DAILY 01/03/18 01/05/18 History Cholecalciferol (Vitamin D3) 2,000 unit PO DAILY 01/03/18 01/05/18 History [Vitamin D3] Levothyroxine Sodium [Synthroid] 125 mcg PO DAILY 01/03/18 01/05/18 History Losartan Potassium [Cozaar] 100 mg PO DAILY 01/03/18 01/05/18 History Pantoprazole Sodium [Protonix] 40 mg PO DAILY 01/03/18 01/05/18 History Sertraline [Zoloft] 100 mg PO BID 01/03/18 01/05/18 History Tolterodine ER [Detrol LA] 4 mg PO DAILY 01/03/18 01/05/18 History clonazePAM [KlonoPIN] 1 mg PO TID PRN 01/03/18 01/05/18 History oxyCODONE-APAP 10-325MG [Percocet 1 tab PO Q4H PRN 01/03/18 01/05/18 History 10-325 mg] tiZANidine HCL [Zanaflex] 4 mg PO TID PRN 01/03/18 01/05/18 History Butalb/APAP/Caff 50-325-40Mg 1 tab PO Q4H PRN #30 tablet 01/05/18 01/05/18 Rx [Fioricet 50-325-40] Metoprolol Tartrate [Lopressor] 25 mg PO TID #90 tab 01/05/18 01/05/18 Rx Rivaroxaban [Xarelto] 20 mg PO W/SUPPER #30 tab 01/05/18 01/05/18 Rx Allergies Allergy/AdvReac Type Severity Reaction Status Date / Time Sulfa (Sulfonamide Allergy Severe Rash/Hives Verified 01/05/18 19:05 Antibiotics) procaine [From Novocain] Allergy Mild Rapid Verified 01/05/18 19:05 Heart Rate albuterol Allergy Rash/Hives Verified 01/05/18 19:05 alcohol Allergy Rash/Hives Verified 01/05/18 19:05 caffeine Allergy Rapid Verified 01/05/18 19:05 Heart Rate iodine Allergy Rash/Hives Verified 01/05/18 19:05 lacosamide [From Vimpat] Allergy Rash/Hives Verified 01/05/18 19:05 lamotrigine [From Lamictal] Allergy Rash/Hives Verified 01/05/18 19:05 latex Allergy Rash/Hives Verified 01/05/18 19:05 oxcarbazepine Allergy Unknown Verified 01/05/18 19:05 [From Trileptal] sumatriptan [From Imitrex] Allergy Unknown Verified 01/05/18 19:05 Physical Exam Vitals: Vital Signs Temp Pulse Pulse Resp BP BP Pulse Ox 01/06/18 16:39 93 20 132/73 01/06/18 08:51 91 20 131/80 01/06/18 06:41 97.9 F 75 14 125/57 01/05/18 22:19 76 126/66 01/05/18 20:13 73 16 122/54 01/05/18 18:58 96.7 F L 81 16 114/73 97 PHYSICAL EXAMINATION: GENERAL: The patient is alert and oriented x3, not in any acute distress. Well developed, well nourished. HEENT: Pupils are round and equally reacting to light. EOMI. No scleral icterus. No conjunctival pallor. Normocephalic, atraumatic. No pharyngeal erythema. No thyromegaly. CARDIOVASCULAR: S1 and S2 present. No murmurs, rubs, or gallops. PULMONARY: Chest is clear to auscultation, no wheezing or crackles. ABDOMEN: Soft, nontender, nondistended, normoactive bowel sounds. No palpable organomegaly. MUSCULOSKELETAL: No joint swelling or deformity. EXTREMITIES: No cyanosis, clubbing, or pedal edema. NEUROLOGICAL: Gross neurological examination did not reveal any focal deficits. SKIN: No rashes. Results CBC & Chem 7: 01/06/18 08:43 01/06/18 08:43 Labs: Abnormal Lab Results - Last 24 Hours (Table) 01/06/18 Range/Units 08:43 Glucose 155 H (74-99) mg/dL Assessment and Plan Plan: New onset atrial fibrillation. Rate controlled, patient is on anti-coagulation Acute psychosis with paranoid symptoms Hypertension Hyperlipidemia Osteoarthritis History of seizure disorder Obstructive sleep apnea on CPAP morbid obesity with BMI 37.2 Medication re-conciliation was reviewed reviewed, a bladder plate medications from medicine prespective being continued. We'll sign off at this point of time please call us back if needed.
[2018-01-06 19:03] LABS: Hemoglobin A1C 5.7 % (4.0-6.0)
[2018-01-06] MEDS ORDERED: risperiDONE 0.5 MG TAB PO SCH (21:00)
[2018-01-07] MEDS: LEVOTHYROXINE 125 MCG TAB PO SCH (06:26)
[2018-01-07] MEDS: LOSARTAN 50 MG TAB PO SCH (09:26)
[2018-01-07] MEDS: METOPROLOL TARTRATE 25 MG TAB PO SCH ×3 (09:26→21:37)
[2018-01-07] MEDS: ATORVASTATIN 20 MG TAB PO SCH (09:26)
[2018-01-07] MEDS: PANTOPRAZOLE 40 MG TABLET PO SCH (09:26)
[2018-01-07] MEDS: OXYBUTYNIN XL 5 MG TAB.ER.24 PO SCH (09:26)
--- NOTE | 2018-01-07 09:54 | P.PN ---
Progress Note - Text Interval history: The patient is found in the hallway she follows me to an interview room. She reports having difficulty sleeping last night as it was a disruptive patient on the unit last evening. She indicates feeling better now that she is on a much lower dose of the Risperdal. We discussed we will discontinue that medication completely now. We discussed medication options in terms of treating depressive and anxiety symptoms and decided to use Lexapro. We discussed potential benefits and side effects of Lexapro and her questions were answered. She reports utilizing no Ativan and she is encouraged to abstain from using any benzodiazepines. She has not been using the Fioricet so we will discontinue that order. She feels that she is stabilizing. It does seem that there was an element of delirium involved with her hospitalization. Mental status exam: The patient is alert she is an overweight female appearing her stated age. She has adequate hygiene grooming she is dressed in her own clothing. She reports that her mood is anxious because of disturbances on the mental health unit. She is reporting no suicidal or homicidal ideation intent or plan. She is endorsing no auditory or visual hallucinations or specific delusions. She demonstrates no verbal or physical aggressiveness. She demonstrates no abnormal involuntary movements. Her affect is appropriately expresses. She is reporting future oriented thinking. Plan: The patient will be started on Lexapro 10 mg daily to address depressive and anxiety symptoms. She was successful for quite some time with Zoloft but appears that medication is no longer effective for her. We will discontinue the Risperdal as it seems no longer needed. We we will consider discharging her tomorrow if she demonstrates continued clinical stability and improvement. Vital signs reviewed. Labs reviewed.
[2018-01-07] MEDS: CHOLECALCIFEROL 1,000 UNIT TAB PO SCH (12:45)
[2018-01-07] MEDS: ESCITALOPRAM 10 MG TAB PO SCH (12:45)
[2018-01-07 13:22] VITALS: RESP 16
[2018-01-07] MEDS: RIVAROXABAN 10 MG TAB PO SCH (18:23)
[2018-01-08] MEDS: LEVOTHYROXINE 125 MCG TAB PO SCH (06:29)
[2018-01-08 06:39] VITALS: TEMP 98.3
[2018-01-08] MEDS: ESCITALOPRAM 10 MG TAB PO SCH (09:37)
[2018-01-08] MEDS: OXYBUTYNIN XL 5 MG TAB.ER.24 PO SCH (09:37)
[2018-01-08] MEDS: ATORVASTATIN 20 MG TAB PO SCH (09:37)
[2018-01-08] MEDS: PANTOPRAZOLE 40 MG TABLET PO SCH (09:37)
[2018-01-08] MEDS: LOSARTAN 50 MG TAB PO SCH (09:37)
[2018-01-08] MEDS: METOPROLOL TARTRATE 25 MG TAB PO SCH (09:37)
--- NOTE | 2018-01-08 09:44 | P.DS ---
Providers Date of admission: 01/05/18 16:31 Expected date of discharge: 01/08/18 Attending physician: You Nichols Consults: 01/05/18 16:35 Consult Physician Routine Consulting Provider: García Fajardo Consult Reason/Comments: Follow up H & P Do you want consulting provider notified?: Yes Primary care physician: Stated None - Discharge Diagnosis(es) (1) Psychosis Current Visit: Yes Status: Acute Priority: High (2) Anxiety Current Visit: Yes Status: Acute Priority: Medium Hospital Course: Brief summary of admission note: This patient is a 67-year-old female who was admitted to the mental health unit from the medical floor. She originally presented to the mental health unit for agitation and symptoms of psychosis but then was found to have atrial fibrillation. She was transferred to the medical floor medically stabilized and brought back to our unit. She had demonstrated strange behavior for one week prior to the admission. There was mention that she had delusional thoughts. There was concern that she had a seizure the Friday prior to the admission. It seems that before coming to the hospital she had been possibly overusing her Klonopin and had run out of the medication. She also reported that she was using marijuana that she found in the house for 2 weeks prior to the admission. For further detail please refer to the psychiatric evaluation dated 01/06/2018. Summary of hospital course: The patient was admitted to the mental health unit she signed in voluntarily. She had been placed on Risperdal 1 mg twice daily on the medical floor. When I evaluated her on 01/06/2018 it was apparent that the symptoms of psychosis had resolved. She was tapered off of the Risperdal. It is clear that she has a history of anxiety symptoms and that was a reason she was previously on Zoloft. It appears that the Zoloft lost its efficacy which likely prompted her to increase her use of Klonopin. We discussed initiating Lexapro 10 mg daily to treat mood and anxiety symptoms. Social work participated in a support meeting via phone with her family member. There were supportive of the discharge. There were guns in the home and those were to be removed. The patient demonstrated no agitated behavior here in the mental health unit she was seen by internal medicine for routine history and physical exam. Her acute symptoms of psychosis are resolved and she is stable for discharge home. Mental status exam: The patient is an overweight female appearing her stated age. She is dressed in her own clothing. Eye contact is appropriate speech is fluent spontaneous nonpressured. She reports no suicidal or homicidal ideation intent or plan. She is reporting no auditory or visual hallucinations or specific delusions. There is no observed evidence of psychosis. She demonstrates no tangential thinking loose associations or flight of ideas. She demonstrates no abnormal involuntary movements she demonstrates no verbal or physical aggressiveness. She remains oriented to person place and date. Affect is appropriately expressive. Impressions 1. Psychosis unspecified, rule out psychosis secondary to benzodiazepine withdrawal versus due to cannabis use, rule out history of major depressive disorder, anxiety unspecified 2. Medical comorbidities include seizure disorder, back injury, renal calculi, hyperlipidemia, hypertension, atrial fibrillation, obstructive sleep apnea Plan: The patient will be discharged mental health unit today to return home residing with her . Social work will arrange for outpatient mental health follow-up. The patient will continue on Lexapro 10 mg daily. There is no imminent safety risk she is appropriate for continued care as an outpatient. She is no longer psychotic and is able to attend to her activities of daily living appropriately. She has expressed no thoughts of self-harm or harm to others. She is instructed to return to the hospital if any acute safety concerns. Patient Condition at Discharge: Stable Plan - Discharge Summary Discharge Rx Participant: No New Discharge Prescriptions: New Escitalopram [Lexapro] 10 mg PO DAILY #30 tab Rivaroxaban [Xarelto] 20 mg PO DAILY #30 tab Continue tiZANidine HCL [Zanaflex] 4 mg PO TID PRN PRN Reason: Pain Tolterodine ER [Detrol LA] 4 mg PO DAILY Levothyroxine Sodium [Synthroid] 125 mcg PO DAILY oxyCODONE-APAP 10-325MG [Percocet 10-325 mg] 1 tab PO Q4H PRN PRN Reason: Pain Pantoprazole Sodium [Protonix] 40 mg PO DAILY Losartan Potassium [Cozaar] 100 mg PO DAILY Cholecalciferol (Vitamin D3) [Vitamin D3] 2,000 unit PO DAILY Atorvastatin [Lipitor] 20 mg PO DAILY Metoprolol Tartrate [Lopressor] 25 mg PO TID #90 tab Discontinued Sertraline [Zoloft] 100 mg PO BID clonazePAM [KlonoPIN] 1 mg PO TID PRN PRN Reason: Anxiety Rivaroxaban [Xarelto] 20 mg PO W/SUPPER #30 tab Butalb/APAP/Caff 50-325-40Mg [Fioricet 50-325-40] 1 tab PO Q4H PRN #30 tablet PRN Reason: Headache Discharge Medication List Atorvastatin [Lipitor] 20 mg PO DAILY 01/03/18 [History] Cholecalciferol (Vitamin D3) [Vitamin D3] 2,000 unit PO DAILY 01/03/18 [History] Levothyroxine Sodium [Synthroid] 125 mcg PO DAILY 01/03/18 [History] Losartan Potassium [Cozaar] 100 mg PO DAILY 01/03/18 [History] Pantoprazole Sodium [Protonix] 40 mg PO DAILY 01/03/18 [History] Tolterodine ER [Detrol LA] 4 mg PO DAILY 01/03/18 [History] oxyCODONE-APAP 10-325MG [Percocet 10-325 mg] 1 tab PO Q4H PRN 01/03/18 [History] tiZANidine HCL [Zanaflex] 4 mg PO TID PRN 01/03/18 [History] Escitalopram [Lexapro] 10 mg PO DAILY #30 tab 01/08/18 [Rx] Metoprolol Tartrate [Lopressor] 25 mg PO TID #90 tab 01/08/18 [Rx] Rivaroxaban [Xarelto] 20 mg PO DAILY #30 tab 01/08/18 [Rx] Follow up Appointment(s)/Referral(s): Duran Kimble [Outside] - 01/12/18 2:30 pm (Joanne paperwork to complete at 2:30 appointment at 3:00)
[2018-01-08 10:09] VITALS: BP 177/78; PULSE 84
[2018-01-08] MEDS: CHOLECALCIFEROL 1,000 UNIT TAB PO SCH (12:54)
[2018-01-08] MEDS ORDERED: RIVAROXABAN 20 MG TAB PO SCH (17:30)
== END 2018-01-08 14:15 | disposition home or self-care (01) | DRG 885 ==
LOC: 3MHU 16:31
PROVIDERS: ADMIT Psychiatry & Neurology Psychiatry; ATTEND Psychiatry & Neurology Psychiatry
DX: F23 Brief psychotic disorder (principal); E66.01 Morbid (severe) obesity due to excess calories; I48.91 Unspecified atrial fibrillation; G40.909 Epilepsy, unspecified, not intractable, without status epilepticus; E78.5 Hyperlipidemia, unspecified; E07.9 Disorder of thyroid, unspecified; F13.231 Sedative, hypnotic or anxiolytic dependence with withdrawal delirium; F12.90 Cannabis use, unspecified, uncomplicated; F32.9 Major depressive disorder, single episode, unspecified; F41.9 Anxiety disorder, unspecified; I10 Essential (primary) hypertension; G47.33 Obstructive sleep apnea (adult) (pediatric); M79.7 Fibromyalgia; M19.91 Primary osteoarthritis, unspecified site; Z68.38 Body mass index [BMI] 38.0-38.9, adult; Z79.01 Long term (current) use of anticoagulants; Z79.899 Other long term (current) drug therapy; Z90.710 Acquired absence of both cervix and uterus; Z90.49 Acquired absence of other specified parts of digestive tract; Z87.442 Personal history of urinary calculi; Z87.891 Personal history of nicotine dependence; Z87.01 Personal history of pneumonia (recurrent); Z91.040 Latex allergy status; Z88.5 Allergy status to narcotic agent; Z88.2 Allergy status to sulfonamides; Z88.8 Allergy status to other drugs, medicaments and biological substances; Z91.018 Allergy to other foods
CPT/HCPCS: 80053; 80061; 83036; 85025

== ENCOUNTER → 2018-06-24 | Outpatient (CLI) | payer MEDICARE ==
--- NOTE | 2018-07-02 10:52 | MM ---
Reason for exam: screening (asymptomatic). Last mammogram was performed 1 year and 1 month ago. History: Patient is postmenopausal. Family history of breast cancer in 2 paternal aunts and breast cancer in sister at age 54. Benign right mammotome panel of the right breast, June 27, 2005. US Right Core Biopsy of the right breast, June 14, 2005. Benign stereotactic core biopsy of the left breast, May 14, 2004. Benign stereotactic core biopsy of the right breast, May 14, 2004. Core biopsy of the left breast. Core biopsy of the right breast. Took estrogen for 1 year. MG 3D Screening Mammo W/Cad Bilateral CC and MLO view(s) were taken. Prior study comparison: June 02, 2017, bilateral MG 3d screening mammo w/cad. March 01, 2016, mammogram, performed at [place]. November 14, 2014, mammogram, performed at [place]. The breast tissue is heterogeneously dense. This may lower the sensitivity of mammography. Finding: There are benign appearing multiple round and oval circumscribed stable masses in the right breast. No suspicious abnormality. No significant new finding since prior exams. Right and left biopsy markers noted. ASSESSMENT: Benign, BI-RAD 2 RECOMMENDATION: Routine screening mammogram of both breasts in 1 year.
== END | disposition home or self-care (01) ==
LOC: RADMAMWWP 11:30
PROVIDERS: ATTEND Family Medicine
DX: Z12.31 Encounter for screening mammogram for malignant neoplasm of breast (principal)
CPT/HCPCS: 77063; 77067

== ENCOUNTER 2019-07-28 07:05 | Day surgery (SDC) | payer MEDICARE ==
[2019-07-27 11:23] VITALS: BMI 38.9
[~2019-07-28 07:05] MED LIST: LACTATED RINGERS 1,000 ML IV SCH; LIDOCAINE 1% 20 ML VIAL (10MG/ML) FOR IV START INTRADERMA PRN
[2019-07-28 07:49] VITALS: TEMP 97.9
[2019-07-28 07:51] LABS: Glucose,Whole Blood 161 mg/dL (75-99)
[2019-07-28] MEDS ORDERED: ONDANSETRON 4 MG/2 ML VIAL IVP ONE (07:56)
[2019-07-28] MEDS ORDERED: GLYCOPYRROLATE 0.2 MG/ML 2 ML VIAL ONE (08:01)
[2019-07-28] MEDS ORDERED: LIDOCAINE 1% INJ 10MG/ML (20 ML MDV) ONE (08:01)
[2019-07-28] MEDS ORDERED: PROPOFOL 10 MG/ML 20 ML VIAL IV ONE (08:01)
--- NOTE | 2019-07-28 08:15 | P.PCN ---
Date of Procedure: 07/28/19 Procedure(s) Performed: BRIEF HISTORY: Patient is a 69-year-old, pleasant, white female, scheduled for an upper endoscopy as a part of evaluation of persistent nausea vomiting for the last 4 weeks' duration. She has these episodes at least 3-5 times a day. Denies any abdominal pain. In view of this and she is scheduled for an upper endoscopy to evaluate further. PROCEDURE PERFORMED: Esophagogastroduodenoscopy with biopsy. PREOPERATIVE DIAGNOSIS: Intermittent nausea vomiting of 3 weeks' duration. IV sedation per anesthesia. PROCEDURE: After informed consent was obtained, the patient was brought into the endoscopy unit. IV sedation was administered by Anesthesia under continuous monitoring. Initially the Olympus GIF-140 video endoscope was inserted into the mouth. Esophagus intubated without any difficulty. It was gradually advanced into the stomach and duodenum and carefully examined. The bulb and the second part of the duodenum appeared normal. There was a 3-4 mm polyp in the duodenal sweep which was biopsied. The scope at this time was withdrawn to the stomach, adequately insufflated with air, and upon careful examination, mucosa of the antrum, had mild gastritis and biopsies were done from this area. The body, cardia and the fundus appeared normal. The scope was then withdrawn into the esophagus. The GE junction was located at 41 cm from the incisors. It was a fissure erosions at the GE junction consistent with LA grade a reflux esophagitis. Rest of esophagus appeared normal, biopsies were done from the distal esophagus and the patient tolerated the procedure well. IMPRESSION: 1. Mild antral gastritis. 2. LA grade A reflux esophagitis. 3. 3 mm duodenal polyp status post biopsy RECOMMENDATIONS: The findings of this examination were discussed with the patient as well as a family. She was advised to follow with the biopsy results. She'll be given a trial of Prilosec 20 mg daily to be taken half hour before breakfast for 6 weeks. She will continue with Compazine as needed. Follow up in office in 6 weeks.
[2019-07-28 08:24] VITALS: RESP 18
[2019-07-28 08:29] LABS: Glucose,Whole Blood 149 mg/dL (75-99)
[2019-07-28 08:57] VITALS: BP 108/65; PULSE 76
== END 2019-07-28 08:58 | disposition home or self-care (01) ==
LOC: ORWHC2ENDO 07:05
PROVIDERS: ATTEND Internal Medicine Gastroenterology
DX: K22.10 Ulcer of esophagus without bleeding (principal); K29.70 Gastritis, unspecified, without bleeding; K31.7 Polyp of stomach and duodenum; I48.91 Unspecified atrial fibrillation; E78.5 Hyperlipidemia, unspecified; E11.9 Type 2 diabetes mellitus without complications; E07.9 Disorder of thyroid, unspecified; Z79.01 Long term (current) use of anticoagulants; Z79.84 Long term (current) use of oral hypoglycemic drugs; Z79.890 Hormone replacement therapy; Z79.899 Other long term (current) drug therapy; Z88.6 Allergy status to analgesic agent; Z88.4 Allergy status to anesthetic agent; Z91.040 Latex allergy status; Z88.2 Allergy status to sulfonamides; Z88.8 Allergy status to other drugs, medicaments and biological substances; Z91.048 Other nonmedicinal substance allergy status; Z91.09 Other allergy status, other than to drugs and biological substances; R56.9 Unspecified convulsions
CPT/HCPCS: 88305; 43239; J2405; J2001; J2704

== ENCOUNTER → 2022-03-15 | Outpatient (CLI) | payer MEDICARE, OTHER ==
--- NOTE | 2022-03-19 04:49 | MR ---
EXAMINATION TYPE: MR foot LT wo/w con DATE OF EXAM: 03/15/2022 COMPARISON: 07/04/2021 HISTORY: CONGENITAL MALFORMATION OF PERIPHERAL VASCULAR SYSTEM, Pain, mass, swelling, limited movemen t, attention fore foot to mid foot CONTRAST: Standard multiplanar, multisequence MRI departmental protocol images were obtained without contrast a nd with 12 mL intravenous Gadavist gadolinium contrast. The metatarsals are intact. Toes appear intact. No evidence of a fracture. I see no bony destructive process. There is some mild subcutaneous edema over the dorsum of the midfoot. The Achilles tendon is intact. Plantar fascia is intact. Medial and lateral flexor tendons are intact . There is some mild subcutaneous edema around the lower leg above the ankle. There is small amount o f fluid around the medial flexor tendons of the foot. There are some prominent vessels about the plan tar aspect of the midfoot. This is significantly improved compared to previous exam. Impression: Subcutaneous edema on the dorsum of the foot is improved compared to the old exam. Subcutaneous edema around the lower leg appears improved. No fracture. Fluid around the medial flexor tendons consistent with some tenosynovitis. There is improvement in the prominent vessels on the plantar aspect of the midfoot compared to old ex am that could relate to decrease in a vascular malformation.
== END | disposition home or self-care (01) ==
LOC: RADMRIMAIN 07:52
PROVIDERS: ATTEND Nurse Practitioner
DX: R60.0 Localized edema (principal)
CPT/HCPCS: 73720; A9585

== ENCOUNTER → 2022-03-29 | Outpatient (CLI) | payer MEDICARE ==
--- NOTE | 2022-03-29 13:05 | MM ---
Reason for exam: clinical finding. Last mammogram was performed 3 years and 9 months ago. History: Patient is postmenopausal. Family history of breast cancer in 2 paternal aunts and breast cancer in sister at age 54. Benign right mammotome panel of the right breast, June 27, 2005. US Right Core Biopsy of the right breast, June 14, 2005. Benign stereotactic core biopsy of the left breast, May 14, 2004. Benign stereotactic core biopsy of the right breast, May 14, 2004. Core biopsy of the left breast. Core biopsy of the right breast. Took estrogen for 1 year. Indicated problem(s): pain in the right breast. Physical Findings: A clinical breast exam by your physician is recommended on an annual basis and results should be correlated with mammographic findings. MG 3D Diag Mammo W/Cad KHADRA Bilateral CC and MLO view(s) were taken. Prior study comparison: June 24, 2018, bilateral MG 3d screening mammo w/cad. June 02, 2017, bilateral MG 3d screening mammo w/cad. The breast tissue is heterogeneously dense. This may lower the sensitivity of mammography. Two nodules upper outer left breast 11.7cm from nipple and 9.1cm from nipple. Results were given to the patient verbally at the time of the exam. ASSESSMENT: Incomplete: need additional imaging evaluation, BI-RAD 0 RECOMMENDATION: Ultrasound of both breasts.
--- NOTE | 2022-03-29 13:07 | USB ---
Reason for exam: additional evaluation requested from abnormal screening. History: Patient is postmenopausal. Family history of breast cancer in 2 paternal aunts and breast cancer in sister at age 54. Benign right mammotome panel of the right breast, June 27, 2005. US Right Core Biopsy of the right breast, June 14, 2005. Benign stereotactic core biopsy of the left breast, May 14, 2004. Benign stereotactic core biopsy of the right breast, May 14, 2004. Core biopsy of the left breast. Core biopsy of the right breast. Took estrogen for 1 year. Physical Findings: A clinical breast exam by your physician is recommended on an annual basis and results should be correlated with mammographic findings. US Breast Limited BILAT Right limited breast ultrasound including focal area of concern, retroareolar and axilla demonstrates a 0.9cm oval lymph node at the axilla tail. Left limited breast ultrasound including focal area of concern, retroareolar and axilla demonstrates a 0.7 x 0.4 x 0.6cm oval, cystic lesion with septation at 2 o'clock, 9cm from nipple Scanned right axillary tail for pain and left upper outer quadrant per radiologist. Results were given to the patient verbally at the time of the exam. ASSESSMENT: Benign, BI-RAD 2 RECOMMENDATION: Routine screening mammogram of both breasts in 1 year.
== END | disposition home or self-care (01) ==
LOC: RADMAMWWP 10:35
PROVIDERS: ATTEND Family Medicine
DX: N60.02 Solitary cyst of left breast (principal); N64.4 Mastodynia; Z78.0 Asymptomatic menopausal state; Z80.3 Family history of malignant neoplasm of breast
CPT/HCPCS: 77066; 76642; G0279; 77062

== ENCOUNTER → 2022-08-01 | Outpatient (CLI) | payer MEDICARE ==
[2022-08-01 13:23] VITALS: BP 112/75; PULSE 71; RESP 18; TEMP 98.6
--- NOTE | 2022-08-01 13:54 | P.GSHP ---
History of Present Illness H&P Date: 08/01/22 Chief Complaint: lump in the left breast Mayda is a 72 year old white female seen in consultation for Dr. Lewis regarding breast evaluation. She had a bilateral mammogram and ultrasound done on 03-29-22 which was BIRAD 2. At this time the patient does not feel any lumps masses or nodules of concern in either breast. She has had bilateral stero biopsy which were benign. She is not complaining of any recent trauma or infection in the breast. Of significance is the fact the patient has a small menigoma. This has been stable for many years. Penelope Risk Evaluation: 5 year risk: 8.9% lifetime risk: 22.7% Caffeine: none nicotine: none chocolate: none hormones: none BCP: used for 1 year in remote past Family History: sister: breast cancer in her 50's sister: kidney cancer sister: metastatic cancer not know primary brother: stage 4 throat cancer not a smoker 2 paternal aunts: breast cancer Hormonal History: menarche: 13 M2 age at first : 26, breat fed: no menopause: 46 ESTELA; no cancer Surgical History: ESTELA gallbladder tonsil D&C left foot injections to collapse AV malformation cataract Medial History: A fib 50% blockage in left main artery DN type w COPD Social History: nicotine: stopped at 41; used to smoke 1/PPD started at 19 alcohol: none drugs: Marijuana occasional - Constitutional Constitutional: Denies chills, Denies fever - EENT Eyes: bilateral as per HPI Ears: deny: decreased hearing, tinnitus Ears, nose, mouth and throat: Denies headache, Denies sore throat - Breasts Breasts: bilateral: as per HPI - Cardiovascular Cardiovascular: Reports shortness of breath, Denies chest pain - Respiratory Respiratory: Reports as per HPI - Gastrointestinal Gastrointestinal: Denies abdominal pain, Denies diarrhea, Denies nausea, Denies vomiting - Genitourinary (Female) Genitourinary: Reports kidney stones, Denies dysuria, Denies hematuria - Menstruation Menstruation: Reports post hysterectomy - Musculoskeletal Musculoskeletal: Reports myalgias - Integumentary Integumentary: Reports pruritus - Neurological Comment: left foot numbness and weekness - Psychiatric Psychiatric: Reports anxiety - Endocrine Endocrine: Reports weight change, Denies fatigue - Hematologic/Lymphatic Comment: on Eliquis for Afib Hematologic/Lymphatic: Reports as per HPI - Allergic/Immunologic Allergic/Immunologic: Reports as per HPI Past Medical History Past Medical History: Atrial Fibrillation, Diabetes Mellitus, Fibromyalgia, Hyperlipidemia, Hypertension, Osteoarthritis (OA), Pneumonia, Seizure Disorder, Sleep Apnea/CPAP/BIPAP, Syncope, Thyroid Disorder Additional Past Medical History / Comment(s): severly vomiting and diarrhea for a couple of months,last seizure 07-27-19(states "autonomic seizures causing severe sweating,drop in b/p,weakness and blackouts"),hemangioma,freq dizziness, 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 Past Anesthesia/Blood Transfusion Reactions: Family History of Problems w/ Anesthesia, Motion Sickness, Postoperative Nausea & Vomiting (PONV) Additional Past Anesthesia/Blood Transfusion Reaction / Comment(s): mother & sister hx PONV Past Psychological History: Depression Additional Psychological History / Comment(s): Paranoia Smoking Status: Never smoker Past Alcohol Use History: Rare Past Drug Use History: None Reported - Past Family History Father Family Medical History: Myocardial Infarction (MS) Additional Family Medical History / Comment(s): Patient's father at the age of a 54 years old of a myocardial infarction. Mother Family Medical History: AFIB, Chest Pain / Angina Medications and Allergies Home Medications Medication Instructions Recorded Confirmed Type Levothyroxine Sodium [Synthroid] 125 mcg PO QAM 01/03/18 11/21/21 History Losartan Potassium [Cozaar] 100 mg PO QAM 01/03/18 11/21/21 History Apixaban [Eliquis] 5 mg PO BID 07/27/19 11/21/21 History Atorvastatin Calcium [Lipitor] 80 mg PO DAILY 11/21/21 11/21/21 History Azithromycin [Zithromax Z-pack (6 0 mg PO DIRECTED #1 packet 11/21/21 Rx tabs)] Furosemide [Lasix] 40 mg PO DAILY 11/21/21 11/21/21 History Gabapentin [Neurontin] 900 mg PO HS 11/21/21 11/21/21 History Metoprolol Tartrate [Lopressor] 50 mg PO BID 11/21/21 11/21/21 History Spironolactone [Aldactone] 25 mg PO DAILY 11/21/21 11/21/21 History predniSONE 50 mg PO DAILY #5 tab 11/21/21 Rx sitaGLIPtin [Januvia] 50 mg PO DAILY 11/21/21 11/21/21 History Allergies Allergy/AdvReac Type Severity Reaction Status Date / Time alcohol Allergy Rash/Hives Verified 08/01/22 13:23 iodine Allergy Rash/Hives Verified 08/01/22 13:23 lacosamide [From Vimpat] Allergy Rash/Hives Verified 08/01/22 13:23 lamotrigine [From Lamictal] Allergy Rash/Hives Verified 08/01/22 13:23 latex Allergy Rash/Hives Verified 08/01/22 13:23 Sulfa (Sulfonamide AdvReac Severe Rash/Hives Verified 08/01/22 13:23 Antibiotics) procaine [From Novocain] AdvReac Mild Rapid Verified 08/01/22 13:23 Heart Rate albuterol AdvReac Rapid Verified 08/01/22 13:23 Heart Rate caffeine AdvReac Rapid Verified 08/01/22 13:23 Heart Rate oxcarbazepine AdvReac extremely Verified 08/01/22 13:23 [From Trileptal] high blood pressure sumatriptan [From Imitrex] AdvReac rapid Verified 08/01/22 13:23 heart rate,sweating,passed out Surgical - Exam Vital Signs Temp Pulse Resp BP Pulse Ox 98.6 F 71 18 112/75 99 08/01/22 13:18 08/01/22 13:18 08/01/22 13:18 08/01/22 13:18 08/01/22 13:18 BMI: 37.7 - General moderate distress - Eyes normal ocular movement - Neck trachea midline - Respiratory normal respiratory effort, clear to auscultation - Cardiovascular Heart Sounds: normal: S1, S2 - Abdomen Abdomen: soft, non tender, no guarding, no rigid, no rebound - Integumentary normal turgor - Neurologic no disoriented, no combative - Musculoskeletal normal gait - Psychiatric oriented to time, oriented to person, oriented to place, speech is normal, memory intact Breast Exam: BRA: 44C Inspection: Right breast slightly larger than left breast, bilateral grade 2/3 ptosis Palpation: Right breast: Multi-positional exam fibrocystic changes no dominant masses or nodules of concern Right axilla: No adenopathy of concern Left breast: Multi-positional exam fibrocystic changes no dominant masses or nodules of concern Left axilla: No adenopathy of concern Assessment and Plan Assessment: Impression: A fib 50% blockage in left main artery DN type w COPD Fibrocystic breast changes History of meningioma stable Bilateral mammogram and ultrasound [id number] benign BIRADS 2 Plan: Bilateral mammogram in March 2023 with physician exam at that time Patient to follow up sooner any questions or concerns Consider genetic testing secondary to strong family history of cancer consult with medical oncology for chemprevention CC: Dr. Lewis
== END ==
LOC: WWCWWP 12:53
PROVIDERS: ATTEND Surgery
DX: N60.11 Diffuse cystic mastopathy of right breast (principal); N60.12 Diffuse cystic mastopathy of left breast; J44.9 Chronic obstructive pulmonary disease, unspecified; I48.91 Unspecified atrial fibrillation; E11.9 Type 2 diabetes mellitus without complications; Z87.891 Personal history of nicotine dependence; M19.90 Unspecified osteoarthritis, unspecified site; E78.5 Hyperlipidemia, unspecified; I10 Essential (primary) hypertension; G40.909 Epilepsy, unspecified, not intractable, without status epilepticus; F32.A Depression, unspecified; Z79.01 Long term (current) use of anticoagulants; Z91.041 Radiographic dye allergy status; Z88.2 Allergy status to sulfonamides; Z88.6 Allergy status to analgesic agent; Z91.040 Latex allergy status; Z88.8 Allergy status to other drugs, medicaments and biological substances; Z91.018 Allergy to other foods

== ENCOUNTER → 2023-04-10 | Outpatient (CLI) | payer MEDICARE ==
--- NOTE | 2023-04-10 15:34 | MR ---
EXAMINATION TYPE: MR brain wo/w con DATE OF EXAM: 04/10/2023 COMPARISON: NONE HISTORY: Dizziness, hx meningioma. TECHNIQUE: Multiplanar, multisequence images of the brain and brainstem is performed without and with IV contras t, utilizing 12 mL intravenous Gadavist . FINDINGS: Diffusion weighted images demonstrate no evidence of a recent infarct or other diffusion ab normality. There is mild ventricular and sulcal prominence. There is rare T2 hyperintense focus thro ughout the white matter bilaterally.. Midline structures demonstrate normal morphology. The craniocervical junction appears within normal limits. In the middle cranial fossa anterior to left temporal lobe there is homogeneous enhancing 1.4 x 1.3 x 1.6 cm enhancing extra-axial mass consistent with meningioma. No abnormal enhancing intrapar enchymal masses to suggest metastatic disease to the brain. The dural venous sinuses appear patent. T he visualized sinuses are clear and the globes are intact. IMPRESSION: No abnormal enhancing intraparenchymal masses to suggest metastatic disease to the brain. There is mild diffuse cerebral atrophy and mild to minimal chronic small vessel ischemic change. The re is 1.6 cm anterior left temporal meningioma noted.
== END | disposition home or self-care (01) ==
LOC: RADMRIMAIN 14:37
PROVIDERS: ATTEND Family Medicine
DX: I67.82 Cerebral ischemia (principal); G31.9 Degenerative disease of nervous system, unspecified; D32.0 Benign neoplasm of cerebral meninges; Z86.018 Personal history of other benign neoplasm
CPT/HCPCS: 70553; A9585

== ENCOUNTER 2024-02-27 05:59 | Day surgery (SDC) | payer MEDICARE ==
[2024-02-25 10:12] VITALS: BMI 37.1
[2024-02-27] MEDS ORDERED: ONDANSETRON 4 MG/2 ML VIAL ONE (07:08)
[2024-02-27] MEDS: ONDANSETRON 4 MG/2 ML VIAL IVP ONE (07:26)
[2024-02-27] MEDS: SODIUM CHLORIDE 0.9% 1,000 ML IV SCH (07:26)
[2024-02-27] MEDS ORDERED: LIDOCAINE 1% INJ 10MG/ML (20 ML MDV) ONE (07:36)
[2024-02-27] MEDS ORDERED: PROPOFOL 10 MG/ML 20 ML VIAL IV ONE (07:36)
[2024-02-27 07:37] LABS: Glucose,Whole Blood 162 mg/dL (70-110)
[2024-02-27] MEDS: BENZOCAINE SPRAY 1 CAN TOPICAL ONE (07:43)
--- NOTE | 2024-02-27 07:56 | P.PCN ---
Date of Procedure: 02/27/24 Operative Findings: Cardioversion Report Performing physician Hoang Pandya M.D. Procedure performed Successful cardioversion of atrial fibrillation to normal sinus mechanism using 200 J at first attempt Indication Symptomatic atrial fibrillation Complication None Level of sedation The procedure was performed under deep sedation using propofol with WEB PRESS JOGGER in the room Procedure description After obtaining an informed consent the patient was brought to the recovery room. Sedation was introduced using propofol with WEB PRESS JOGGER in the room. Subsequently the patient cardioverted from atrial fibrillation to normal sinus mechanism using 200 J and first attempt Conclusion Successful cardioversion of atrial fibrillation to normal sinus mechanism using 200 J Postprocedure management Continue the current medical regimen Continue oral anticoagulation Follow-up with the patient
--- NOTE | 2024-02-27 07:57 | P.PCN ---
Date of Procedure: 02/27/24 Operative Findings: TRANSESOPHAGEAL ECHOCARDIOGRAM EDITORIAL DIRECTOR: UMAIR CISNEROS MD, RPVI INDICATION: Rule out intracardiac thrombus SEDATION: Conscious sedation COMPLICATION: None LEVEL OF SEDATION Procedure was performed using propofol with BICYCLE INSPECTOR in the room PROCEDURE DESCRIPTION: After obtaining an informed consent, the patient was brought to transesophageal echocardiogram room. Pulse oximetry and heart monitors were attached to the patient. The patient throat was sprayed using lidocaine. The patient was turned into left lateral position. After that a bite guard was placed. After an appropriate conscious sedation was initiated, the transesophageal echocardiogram was advanced through a bite guard into the mid esophagus. A 2-D echocardiogram images, color Doppler images, continuous wave images, pulse-wave images, of various cardiac structure were performed. After that the transesophageal echocardiogram probe was advanced into the stomach and fixed to obtain transgastric view was. The probe was brought into the mid esophagus. Inter-atrial septum was interrogated using 2D images, color Doppler images, and then contrast study. After that transesophageal echocardiogram was withdrawn out and upon withdrawing the descending thoracic aorta all the way up to the arch was evaluated. CONCLUSION: 1. No evidence of intracardiac thrombus 2. Intact left atrial appendage 3. Normal LV systolic function 4. Severe biatrial enlargement 5. Intact interatrial septum with no shunt
[2024-02-27 07:59] VITALS: TEMP 98.5
[2024-02-27 08:16] LABS: Glucose,Whole Blood 158 mg/dL (70-110)
[2024-02-27] MEDS ORDERED: NALOXONE 0.4 MG/ML 1 ML VIAL IVP PRN (08:16)
[2024-02-27] MEDS: SODIUM CHLORIDE 0.9% 1,000 ML IV ONE (08:21)
[2024-02-27] MEDS ORDERED: SODIUM CHLORIDE 0.9% 1,000 ML in EMPTY BAG 1 BAG IV SCH (08:30)
[2024-02-27 08:42] VITALS: PULSE 76
[2024-02-27 09:26] VITALS: BP 123/80; RESP 16
== END 2024-02-27 09:37 | disposition home or self-care (01) ==
LOC: OR 05:59
PROVIDERS: ATTEND Internal Medicine Interventional Cardiology
DX: I48.0 Paroxysmal atrial fibrillation (principal); I38 Endocarditis, valve unspecified; I25.10 Atherosclerotic heart disease of native coronary artery without angina pectoris; I51.7 Cardiomegaly; I10 Essential (primary) hypertension; E78.5 Hyperlipidemia, unspecified; E11.9 Type 2 diabetes mellitus without complications; Z82.49 Family history of ischemic heart disease and other diseases of the circulatory system; Z79.01 Long term (current) use of anticoagulants; Z79.899 Other long term (current) drug therapy; Z88.2 Allergy status to sulfonamides; Z91.040 Latex allergy status; Z88.8 Allergy status to other drugs, medicaments and biological substances
CPT/HCPCS: 93312; 93320; 93325; 92960; J2405; J2001; J2704

== ENCOUNTER 2024-04-26 06:08 | Day surgery (SDC) | payer MEDICARE ==
[~2024-04-26 06:08] MED LIST changes: +LIDOCAINE 1% (10MG/ML) FOR IV START INTRADERMA PRN; -LIDOCAINE 1% 20 ML VIAL (10MG/ML) FOR IV START INTRADERMA PRN
[2024-04-26 06:59] VITALS: TEMP 97
[2024-04-26] MEDS: IV FLUID CONTINUATION 1,000 ML IV ONE (07:05)
[2024-04-26] MEDS: SODIUM CHLORIDE 0.9% 500 ML 500 ML IV SCH (07:07)
[2024-04-26 07:17] LABS: Glucose,Whole Blood 162 mg/dL (70-110)
[2024-04-26] MEDS ORDERED: PROPOFOL 10 MG/ML 20 ML VIAL IV ONE (07:29)
[2024-04-26 07:46] LABS: African American GFR (CKD) >90 (>60 ml/min/1.73 sqM); Anion Gap 6 mmol/L; Blood Urea Nitrogen 17 mg/dL (7-17); Calcium 9.5 mg/dL (8.4-10.2); Carbon Dioxide 27 mmol/L (22-30); Chloride 104 mmol/L (98-107); Glucose 156 mg/dL (74-99); Non-African American GFR(CKD) 89 (>60 ml/min/1.73 sqM); Sodium 137 mmol/L (137-145)
[2024-04-26 07:47] LABS: Potassium 3.9 mmol/L (3.5-5.1)
--- NOTE | 2024-04-26 08:17 | P.PCN ---
Date of Procedure: 04/26/24 Operative Findings: Cardioversion Report Performing physician Hoang Pandya M.D. Procedure performed Attempted l cardioversion of atrial fibrillation to normal sinus mechanism x 2 Indication Symptomatic atrial fibrillation Complication None Level of sedation The procedure was performed under deep sedation using propofol with LUMBER MOVER in the room Procedure description After obtaining an informed consent the patient was brought to the recovery room. Sedation was introduced using propofol with LUMBER MOVER in the room. Subsequently we attempted cardioversion twice but the patient remains in atrial fibrillation Conclusion Unsuccessful cardioversion of atrial fibrillation to normal sinus mechanism Postprocedure management Consider referring the patient to undergo atrial fibrillation ablation Continue the current medical regimen Continue oral anticoagulation Follow-up with the patient
[2024-04-26] MEDS: IV FLUID CONTINUATION 600 ML IV ONE (08:28)
[2024-04-26 09:14] VITALS: BP 105/63; PULSE 61; RESP 16
== END 2024-04-26 09:21 | disposition home or self-care (01) ==
LOC: OR 06:08
PROVIDERS: ATTEND Internal Medicine Interventional Cardiology
DX: I48.91 Unspecified atrial fibrillation (principal); I10 Essential (primary) hypertension; E78.5 Hyperlipidemia, unspecified; J44.9 Chronic obstructive pulmonary disease, unspecified; G47.33 Obstructive sleep apnea (adult) (pediatric); E11.9 Type 2 diabetes mellitus without complications; E03.9 Hypothyroidism, unspecified; K76.0 Fatty (change of) liver, not elsewhere classified; M79.7 Fibromyalgia; G40.909 Epilepsy, unspecified, not intractable, without status epilepticus; F41.9 Anxiety disorder, unspecified; Z79.01 Long term (current) use of anticoagulants; Z79.51 Long term (current) use of inhaled steroids; Z79.899 Other long term (current) drug therapy; Z79.890 Hormone replacement therapy; Z86.73 Personal history of transient ischemic attack (TIA), and cerebral infarction without residual deficits; Z88.8 Allergy status to other drugs, medicaments and biological substances; Z88.5 Allergy status to narcotic agent; Z88.2 Allergy status to sulfonamides; Z88.1 Allergy status to other antibiotic agents
CPT/HCPCS: 92960; 80048; J2704

== ENCOUNTER → 2025-05-26 | Outpatient (CLI) | payer MEDICARE ==
--- NOTE | 2025-05-26 12:50 | NM ---
EXAMINATION TYPE: NM gastric emptying static DATE OF EXAM: 05/26/2025 COMPARISON: NONE CLINICAL INDICATION: Female, 75 years old with history of R11.2 nausea with vomiting; Following administration of 1.96 mCi Tc 99m Sulfur Colloid with 4 oz eggs, 1/2 piece of toast with bu tter, and 8 oz of water, projection images of the abdomen were obtained 15 minutes post ingestion. Patient Emptying Values 1 Hour 17 % (normal 10-70%) 2 Hours 42 % (normal> 40%) 3 Hours 44 % (normal> 70%) 4 Hours 59 % (normal> 90%) Gastroesophagel reflux: None IMPRESSION: Gastric emptying: Delayed gastric emptying Gastroesophageal reflux: None No scintigraphic evidence for gastroparesis. [facility] Kelley Kimble, , 05/26/2025 12:47 PM
== END | disposition home or self-care (01) ==
LOC: RADNMMAIN 06:48
PROVIDERS: ATTEND Internal Medicine Gastroenterology
DX: R11.2 Nausea with vomiting, unspecified (principal); K30 Functional dyspepsia
CPT/HCPCS: 78264; A9541